=== PATIENT | male | born 1955 | race African-American/Black ===

== ENCOUNTER 2016-07-15 22:59 | Emergency (ER) | payer MEDICARE, MEDICAID ==
[~2016-07-15] VITALS: Ht 167.6 cm; Wt 102.6 kg
[~2016-07-15 22:59] MED LIST: ACCUPRIL20 MG OR; ACID REDUCER10 M1 OR; ADLT ASA LOW81 MG PO; AMBIEN10 MG PO; AMOXICILLIN/CL500 MG PO; AMOXICILLIN250 M1 PO; AMOXICILLIN500 M1 OR; ANUCORT-HC25 MG RE; ANUSOL-HC25 MG RE; ATENOLOL50 MG OR; ATENOLOL50 MG PO; ATORVASTATIN CA10 MG PO; BACTRIM DS1 TAB OR; BACTRIM DS1 TAB PO; BENZTROPINE0.5 MG PO; BENZTROPINE1 MG OR; BENZTROPINE1 MG PO; CHILD ASA LS81 MG PO; CHILD ASA81 MG PO; CIPRO500 MG OR; CIPROFLOXACN500 MG PO; COGENTIN1 M1 PO; COGENTIN1 M2 PO; COGENTIN1 MG OR; COLACE100 MG OR; COLACE100 MG PO; COLACE50 MG OR; CORRECTOL100 MG PO; CYCLOBENZAPR10 MG PO; DARVOCET-N 100100 MG OR; DEPAKOTE ER500 MG OR; DEPAKOTE ER500 MG PO; DEPAKOTE250 MG PO; DEPAKOTE500 MG OR; DEPAKOTE500 MG PO; DICYCLOMINE10 MG PO; DIGITEK0.25 MG OR; DIGOXIN0.25 MG OR; DIGOXIN0.25 MG PO; DIVALPROEX SOD250 MG PO; DIVALPROEX SOD500 M2 PO; DOCUSATE SOD100 M2 PO; DOCUSATE SOD100 MG OR; DOXYCYCL HYC100 M4 PO; ENALAPRIL10 MG OR; EYE ALLERG1 OP; FAMOTIDINE20 M1 PO; FAMOTIDINE40 MG OR; FERROUS SULF325 M2 PO; FLAGYL500 MG OR; FLEXERIL OR; FLUPHENAZINE10 MG OR; FLUPHENAZINE5 MG OR; GEODON80 MG OR; GEODON80 MG PO; HALOPERIDOL10 MG PO; HALOPERIDOL5 MG PO; HYDROCHLOROT12.5 M1 OR; HYDROCHLOROT12.5 MG PO; HYDROCODONE/ACE1 TA1 PO; KLOR-CON M2020 MEQ OR; KLOR-CON M2020 MEQ PO; LASIX 20 MG TAB20 MG PO; LASIX20 MG OR; LO-DOSE ASA81 MG OR; LORCET PLUS 7.51 TAB PO; LORTAB 5 PO; LORTAB 7.5 PO; LORTAB 7.57.5 MG PO; LOTRISONE TOP; MEDDOSEPAK OR; MIRALAX3350 N1 OR; MIRAPEX0.5 MG PO; MIRTAZAPINE15 MG PO; MULTI VIT PO; MULTIVITAMI9 PO; MURINE EAR6.5 % OT; MYCOSTATIN100000 MG EX; NAPROSYN375 MG PO; NAPROSYN500 MG OR; NAPROSYN500 MG PO; NITROQUICK0.4 MG SL; NORVASC10 M1 PO; ONDANSETRON4 MG PO; OXYCO/APAP1 TA5 PO; OXYCODONE/ACETA1 TAB PO; PENICILLN VK500 MG PO; PEPCID40 MG OR; PERCOCET 5/325M1 TAB PO; POT CHLORIDE20 ME3 PO; PRAVASTATIN40 MG OR; PRAVASTATIN40 MG PO; PRAZOSIN HCL5 MG PO; PREVACID30 M1 OR; PROLIXIN 5 MG TA5 MG OR; PROLIXIN 5 MG TA5 MG PO; PROPO-N/APAP1 TA1 OR; QUINAPRIL20 MG OR; QUINAPRIL20 MG PO; REGLAN10 MG OR; REMERON15 MG PO; REMERON7.5 MG PO; RISPERDAL M0.5 MG PO; RISPERDAL M1 MG PO; RISPERDAL1 M1 PO; RISPERDAL1 MG PO; RISPERDAL2 MG PO; RISPERIDONE2 MG PO; RYBIX ODT50 MG OR; RYBIX ODT50 MG PO; SERTRALINE HCL100 MG PO; SERTRALINE HCL50 MG PO; SURFAK240 MG OR; TENORMIN50 MG OR; TORADOL OR; TRAMADOL HCL50 MG PO; TYLENOL ARTH650 M1 PO; ULTRAM50 M1 OR; ULTRAM50 M1 PO; ULTRAM50 MG OR; ULTRAM50 MG PO; UNSURE OF MEDS; VITAMIN C500 M1 PO; WAL-FEX D 1212 HOUR PO; ZITHROMAX250 MG PO; ZOLPIDEM TARTRA10 MG PO; ZYPREXA PO; ZYPREXA ZYDI15 MG OR; ZYPREXA15 MG OR; ZYRTEC10 M2 PO; ZYRTEC10 MG PO; [UNRECOGNIZED DRUG - OTHER] EX; [UNRECOGNIZED DRUG - OTHER] IJ; [UNRECOGNIZED DRUG - OTHER] TD
[2016-07-16] MEDS ORDERED: ANUCORT-HC25 MG RE (00:11)
[2016-07-16] MEDS ORDERED: COLACE100 MG PO (00:11)
[2016-07-16 00:13] VITALS: BP 133/78
== END 2016-07-16 00:32 | disposition home or self-care (01) ==
LOC: ED 22:59
DX: K64.9 Unspecified hemorrhoids (principal)

== ENCOUNTER 2016-09-01 10:52 | Emergency (ER) | payer MEDICARE, MEDICAID ==
[~2016-09-01] VITALS: Ht 167.6 cm; Wt 100.4 kg
[2016-09-01 10:58] VITALS: BP 125/73
[2016-09-01] MEDS ORDERED: EC-NAPROSYN500 MG PO (11:17)
== END 2016-09-01 11:40 | disposition home or self-care (01) ==
LOC: ED 10:52
DX: M17.0 Bilateral primary osteoarthritis of knee (principal); R22.43 Localized swelling, mass and lump, lower limb, bilateral

== ENCOUNTER 2016-10-15 21:20 | Emergency (ER) | payer MEDICARE, MEDICAID ==
[~2016-10-15] VITALS: Ht 172.7 cm; Wt 110.0 kg
[~2016-10-15 21:20] MED LIST changes: +EC-NAPROSYN500 MG PO
[2016-10-15 22:02] LABS: HEMOGLOBIN 11.8 g/dl (14.0-18.0); IMMATURE GRANULOCYTES 0.1 % (0.0-1.0); MEAN CORPUSCULAR HGB 27.3 pG CALC (26.0-32.0); MEAN CORPUSCULAR HGB CONC 33.7 g/L CALC (32.0-36.0); NEUT# 3.07 thou/uL (1.82-7.42); RED BLOOD COUNT 4.32 mill/uL (4.70-6.10); RED CELL DISTRI WIDTH 13.9 % (11.5-15.5)
[2016-10-15 22:17] LABS: INFLUENZA A NONE DETECTED (NONE DETECT); INFLUENZA B NONE DETECTED (NONE DETECT)
[2016-10-15 22:18] LABS: ALBUMIN 4.1 g/dL (3.2-5.0); ALKALINE PHOSPHATASE 101 u/l (38-126); ANION GAP 17 (6-22 (CALC)); BILIRUBIN, TOTAL 0.3 mg/dL (0.0-1.4); BUN 13 mg/dL (8-23); BUN/CREATININE RATIO 18 (12-20 (CALC)); CALCIUM 9.4 mg/dL (8.4-10.2); CARBON DIOXIDE 22 mmol/l (22-30); CHLORIDE 105 mmol/l (95-108); CREATININE 0.7 mg/dL (0.7-1.3); GFR > 60 ML/MIN (>=60 (CALC)); GFR FOR AFR.AMER. > 60 ML/MIN (>=60 (CALC)); GLUCOSE 85 mg/dL (82-115); SGOT/AST 20 u/l (19-48); SGPT/ALT 30 u/l (11-66); SODIUM 140 mmol/l (137-146)
[2016-10-15] MEDS ORDERED: KEFLEX500 M1 PO (22:49)
[2016-10-15] MEDS ORDERED: ROBITUSSIN AC10 ML PO (22:50)
[2016-10-15 23:25] VITALS: BP 132/74
== END 2016-10-15 23:25 | disposition home or self-care (01) ==
LOC: ED 21:20
PROVIDERS: Emergency Medicine
DX: J06.9 Acute upper respiratory infection, unspecified (principal); I10 Essential (primary) hypertension; M19.90 Unspecified osteoarthritis, unspecified site; F41.9 Anxiety disorder, unspecified; F32.9 Major depressive disorder, single episode, unspecified; F17.220 Nicotine dependence, chewing tobacco, uncomplicated; Z86.73 Personal history of transient ischemic attack (TIA), and cerebral infarction without residual deficits

== ENCOUNTER 2016-10-29 06:04 | Emergency (ER) | payer MEDICARE, MEDICAID ==
[~2016-10-29] VITALS: Ht 172.7 cm; Wt 100.0 kg
[~2016-10-29 06:04] MED LIST changes: +KEFLEX500 M1 PO; +ROBITUSSIN AC10 ML PO
[2016-10-29] MEDS ORDERED: NAPROSYN500 MG PO (06:53)
[2016-10-29 07:11] VITALS: BP 118/70
== END 2016-10-29 07:14 | disposition home or self-care (01) ==
LOC: ED 06:04
DX: S83.92XA Sprain of unspecified site of left knee, initial encounter (principal); M89.9 Disorder of bone, unspecified; I10 Essential (primary) hypertension; M19.90 Unspecified osteoarthritis, unspecified site; X58.XXXA Exposure to other specified factors, initial encounter; Z86.73 Personal history of transient ischemic attack (TIA), and cerebral infarction without residual deficits

== ENCOUNTER 2017-01-25 07:19 | Emergency (ER) | payer MEDICARE, MEDICAID ==
[~2017-01-25] VITALS: Ht 172.7 cm; Wt 90.0 kg
[2017-01-25 07:56] LABS: HEMATOCRIT 36.3 % (39.0-50.0); HEMOGLOBIN 12.3 g/dl (14.0-18.0); IMMATURE GRANULOCYTES 0.3 % (0.0-1.0); MEAN CELL VOLUME 80.5 fL CALC (80.0-100.0); MEAN CORPUSCULAR HGB 27.3 pG CALC (26.0-32.0); MEAN CORPUSCULAR HGB CONC 33.9 g/L CALC (32.0-36.0); NEUT# 3.33 thou/uL (1.82-7.42); RED BLOOD COUNT 4.51 mill/uL (4.70-6.10); RED CELL DISTRI WIDTH 14.5 % (11.5-15.5)
[2017-01-25 08:06] LABS: ALBUMIN 4.1 g/dL (3.2-5.0); ALKALINE PHOSPHATASE 94 u/l (38-126); AMYLASE 67 u/l (30-110); ANION GAP 18 (6-22 (CALC)); BILIRUBIN, TOTAL 0.7 mg/dL (0.0-1.4); BUN 10 mg/dL (8-23); BUN/CREATININE RATIO 14 (12-20 (CALC)); CALCIUM 9.8 mg/dL (8.4-10.2); CARBON DIOXIDE 25 mmol/l (22-30); CHLORIDE 102 mmol/l (95-108); CREATININE 0.7 mg/dL (0.7-1.3); GFR > 60 ML/MIN (>=60 (CALC)); GFR FOR AFR.AMER. > 60 ML/MIN (>=60 (CALC)); GLUCOSE 96 mg/dL (82-115); LIPASE 103 u/l (23-300); POTASSIUM 4.2 mmol/l (3.5-5.1); SGOT/AST 24 u/l (19-48); SGPT/ALT 26 u/l (11-66); SODIUM 141 mmol/l (137-146); TOTAL PROTEIN 8.3 g/dL (6.3-8.2)
[2017-01-25 08:18] LABS: MYOGLOBIN 46 ng/mL (0 - 121)
[2017-01-25 10:12] LABS: URINE BILIRUBIN - DIPSTICK NEGATIVE (NEGATIVE); URINE BLOOD DIPSTICK TRACE-INTACT (NEGATIVE); URINE CLARITY CLEAR; URINE COLOR YELLOW; URINE GLUCOSE - DIPSTICK NEGATIVE (NEGATIVE); URINE KETONE NEGATIVE (NEGATIVE); URINE LEUK ESTERASE NEGATIVE (NEGATIVE); URINE NITRITE - DIPSTICK NEGATIVE (Negative); URINE PROTEIN - DIPSTICK NEGATIVE (NEG-TRACE)
[2017-01-25] MEDS ORDERED: IMODIUM2 MG PO (11:17)
[2017-01-25 11:28] VITALS: BP 147/70
[2017-01-29] MEDS ORDERED: NAPROXEN500 MG PO (14:29)
[2017-01-29] MEDS ORDERED: FAMOTIDINE20 M3 PO (14:53)
[2017-01-29] MEDS ORDERED: TENORMIN PO (14:53)
[2017-01-29] MEDS ORDERED: HYDROCO/APAP1 TA9 PO (14:54)
== END 2017-01-25 11:35 | disposition home or self-care (01) ==
LOC: ED 07:19
PROVIDERS: Emergency Medicine
DX: R10.9 Unspecified abdominal pain (principal); R07.9 Chest pain, unspecified; R19.7 Diarrhea, unspecified

== ENCOUNTER 2017-01-30 11:13 | Day surgery (SDC) | payer MEDICARE, MEDICAID ==
[~2017-01-30] VITALS: Ht 170.2 cm; Wt 102.5 kg
[~2017-01-30 11:13] MED LIST changes: +FAMOTIDINE20 M3 PO; +HYDROCO/APAP1 TA9 PO; +IMODIUM2 MG PO; +NAPROXEN500 MG PO; +TENORMIN PO
[2017-01-30 13:47] VITALS: BP 106/58
== END 2017-01-30 11:41 | disposition home or self-care (01) ==
LOC: ENDO 11:13 → ORM 11:45 → ENDO 14:00 → ORM 14:30
PROVIDERS: ATTEND Surgery
PROC: 0D5Q8ZZ Destruction of Anus, Via Natural or Artificial Opening Endoscopic (ICD-10-PCS; principal; 2017-01-30)
DX: K64.4 Residual hemorrhoidal skin tags (principal); K64.8 Other hemorrhoids; I10 Essential (primary) hypertension; I25.10 Atherosclerotic heart disease of native coronary artery without angina pectoris; G47.00 Insomnia, unspecified; F20.9 Schizophrenia, unspecified; G62.9 Polyneuropathy, unspecified; Z86.73 Personal history of transient ischemic attack (TIA), and cerebral infarction without residual deficits

== ENCOUNTER 2017-03-16 20:21 | Emergency (ER) | payer MEDICARE, MEDICAID ==
[~2017-03-16] VITALS: Ht 170.2 cm; Wt 106.0 kg
[2017-03-16 22:45] VITALS: BP 126/76
== END 2017-03-16 22:45 | disposition home or self-care (01) ==
LOC: ED 20:21
DX: M75.21 Bicipital tendinitis, right shoulder (principal); M25.511 Pain in right shoulder; V19.9XXA Pedal cyclist (driver) (passenger) injured in unspecified traffic accident, initial encounter; Y93.55 Activity, bike riding; Y92.9 Unspecified place or not applicable; R94.31 Abnormal electrocardiogram [ECG] [EKG]

== ENCOUNTER 2017-05-04 11:24 | Emergency (ER) | payer MEDICARE, MEDICAID ==
[~2017-05-04] VITALS: Ht 170.2 cm; Wt 140.0 kg
[2017-05-04 13:02] LABS: HEMATOCRIT 36.8 % (39.0-50.0); HEMOGLOBIN 12.3 g/dl (14.0-18.0); IMMATURE GRANULOCYTES 0.2 % (0.0-1.0); MEAN CELL VOLUME 81.8 fL CALC (80.0-100.0); MEAN CORPUSCULAR HGB 27.3 pG CALC (26.0-32.0); MEAN CORPUSCULAR HGB CONC 33.4 g/L CALC (32.0-36.0); NEUT# 4.7 thou/uL (1.82-7.42); RED BLOOD COUNT 4.5 mill/uL (4.70-6.10); RED CELL DISTRI WIDTH 14.3 % (11.5-15.5)
[2017-05-04 13:23] LABS: ANION GAP 19 (6-22 (CALC)); BUN 12 mg/dL (8-23); BUN/CREATININE RATIO 15 (12-20 (CALC)); CALCIUM 10.3 mg/dL (8.4-10.2); CARBON DIOXIDE 21 mmol/l (22-30); CHLORIDE 104 mmol/l (95-108); CREATININE 0.8 mg/dL (0.7-1.3); GFR > 60 ML/MIN (>=60 (CALC)); GFR FOR AFR.AMER. > 60 ML/MIN (>=60 (CALC)); GLUCOSE 114 mg/dL (82-115); POTASSIUM 4.5 mmol/l (3.5-5.1); SODIUM 140 mmol/l (137-146)
[2017-05-04 14:36] VITALS: BP 118/71
== END 2017-05-04 14:44 | disposition home or self-care (01) ==
LOC: ED 11:24
PROVIDERS: Family Medicine
DX: K64.9 Unspecified hemorrhoids (principal); F17.220 Nicotine dependence, chewing tobacco, uncomplicated; M25.512 Pain in left shoulder

== ENCOUNTER 2017-08-14 12:24 | Emergency (ER) | payer MEDICARE, MEDICAID ==
[~2017-08-14] VITALS: Ht 170.2 cm; Wt 104.4 kg
[~2017-08-14 12:24] MED LIST changes: +BENTYL10 MG PO
[2017-08-14] MEDS ORDERED: VOLTAREN - GENE75 MG PO (13:56)
[2017-08-14 14:05] VITALS: BP 129/79
== END 2017-08-14 14:05 | disposition home or self-care (01) ==
LOC: ED 12:24
DX: S46.911A Strain of unspecified muscle, fascia and tendon at shoulder and upper arm level, right arm, initial encounter (principal); W18.30XA Fall on same level, unspecified, initial encounter; Y93.E5 Activity, floor mopping and cleaning; Y92.009 Unspecified place in unspecified non-institutional (private) residence as the place of occurrence of the external cause; F17.220 Nicotine dependence, chewing tobacco, uncomplicated

== ENCOUNTER 2017-10-24 15:21 | Observation (INO) | payer MEDICARE, MEDICAID ==
[~2017-10-24] VITALS: Ht 170.2 cm; Wt 106.1 kg
[~2017-10-24 15:21] MED LIST changes: +VOLTAREN - GENE75 MG PO
--- NOTE | 2017-10-24 15:22 | NUR ---
TO ROOM 12 VIA W/C
[2017-10-24] MEDS ORDERED: ASPIRIN81 MG PO (15:34)
[2017-10-24] MEDS ORDERED: PRAVASTATIN20 MG PO (15:34)
[2017-10-24] MEDS ORDERED: PRAMIPEXOLE0.25 MG PO (15:36)
[2017-10-24] MEDS ORDERED: ZOLPIDEM5 M1 PO (15:36)
[2017-10-24] MEDS ORDERED: PEPCID20 MG PO (15:37)
[2017-10-24] MEDS ORDERED: DIGOXIN0.125 MG PO (15:37)
[2017-10-24] MEDS ORDERED: TENORMIN50 MG PO (15:38)
[2017-10-24] MEDS ORDERED: MINIPRESS5 MG PO (15:38)
[2017-10-24] MEDS ORDERED: QUINAPRIL HCL20 MG PO (15:39)
[2017-10-24] MEDS ORDERED: K-DUR/KLOR-CON20 MEQ PO (15:39)
[2017-10-24] MEDS ORDERED: DOCUSATE SOD100 M2 PO (15:40)
[2017-10-24] MEDS ORDERED: HYDROCHLOROT25 MG PO (15:41)
[2017-10-24] MEDS ORDERED: BENZTROPINE0.5 MG PO (15:43)
[2017-10-24] MEDS ORDERED: SERTRALINE HCL50 MG PO (15:43)
[2017-10-24] MEDS ORDERED: HALOPERIDOL5 MG PO (15:43)
[2017-10-24] MEDS ORDERED: DIVALPROEX SOD250 MG PO (15:44)
[2017-10-24] MEDS ORDERED: RISPERIDONE2 MG PO (15:44)
[2017-10-24] MEDS ORDERED: RISPERIDONE0.5 MG PO (15:45)
[2017-10-24 15:51] LABS: HEMATOCRIT 36.3 % (39.0-50.0); HEMOGLOBIN 12.2 g/dl (14.0-18.0); IMMATURE GRANULOCYTES 0.4 % (0.0-1.0); MEAN CELL VOLUME 80.5 fL CALC (80.0-100.0); MEAN CORPUSCULAR HGB 27.1 pG CALC (26.0-32.0); MEAN CORPUSCULAR HGB CONC 33.6 g/L CALC (32.0-36.0); NEUT# 3.78 thou/uL (1.82-7.42); RED BLOOD COUNT 4.51 mill/uL (4.70-6.10); RED CELL DISTRI WIDTH 14.3 % (11.5-15.5)
[2017-10-24 16:07] LABS: ANION GAP 14 (6-22 (CALC)); BUN 19 mg/dL (8-23); BUN/CREATININE RATIO 23 (12-20 (CALC)); CARBON DIOXIDE 26 mmol/l (22-30); CHLORIDE 102 mmol/l (95-108); CREATININE 0.8 mg/dL (0.7-1.3); GFR > 60 ML/MIN (>=60 (CALC)); GFR FOR AFR.AMER. > 60 ML/MIN (>=60 (CALC)); SODIUM 138 mmol/l (137-146)
--- NOTE | 2017-10-24 16:07 | NUR ---
PT NOW WITH IV ESTABLISHED, BLOOD DRAWN, PROVIDED NTG SL AND ASA. NO IMPROVEMENT AFTER ONE NTG SL.
--- NOTE | 2017-10-24 17:56 | NUR ---
REPORT TO JUSTIN, TO FLOOR SOON. REPORT CALLED.
[2017-10-24 18:03] VITALS: BP 123/74
--- NOTE | 2017-10-24 18:09 | NUR ---
PT TAKEN TO ROOM 284 WITHOUT INCIDENT, AMBULATORY FROM STRETCHER TO BED.
--- NOTE | 2017-10-24 18:41 | NUR ---
REPORT RECEIVED FROM SACHIN IN ED, PT ARRIVED ON UNIT @ 1806, ALERT AND ORIENTED X 3, C/O PAIN TO RIGHT CHEST AGGRAVATED BY MOVING RIGHT ARM, ORIENTED TO ROOM AND CALL TREJO, TELE MONITOR IN PLACE, O2 @ 2L VIA NC IN PLACE, CALL TREJO IN REACH.
--- NOTE | 2017-10-24 19:25 | NUR ---
PT.IS IN THE BED W/LIGHTS AND TV ON, CALL LIGHT AT BEDSIDE, APPEARS TO BE COMFORTABLE AND RESTFUL. BEDSIDE REPORT RECEIVED. PT.REPORTS FEELING "A LITTLE BETTER" THAN WHEN HE FIRST GOT HERE. DENIES ANY NEEDS RIGHT AT THIS MOMENT. CALL LIGHT AT SIDE.
--- NOTE | 2017-10-24 20:30 | NUR ---
PT.MEDICATED ORDERS PROVIDE AND ASSESSMENT COMPLETED. LUNG SOUNDS ARE CLEAR, NORMAL HEART SOUNDS AUSCULTATED, 300CC OF CLEAR YELLOW URINE IN URINAL EMPTIED, PT.LOCX3, BUT COMMUNICATES SLOWLY, REPORTS HAVING HAD BM TODAY. PT.REPORTS LIVING WITH HIS BROTHERS, STATES THAT HE DOES NOT DRIVE, DENIES ANY FIGHTING/ABUSE AND REPORTS FEELING SAFE, BUT THAT HE IS "ALONE ALOT." PT.REPORTS HAVING HAD VACCINES FLU AND PNEUMONIA. HE APPEARS TO UNDERSTAND AND BE ABLE TO FOLLOW DIRECTIONS IF GIVEN AND EXPLAINED SLOWLY. PT.DENIES PAIN AT THIS TIME, STATES TAHT HE IS "FEELING BETTER." REPORTS THAT HIS RIGHT SHOULDER HURTS SOME WHEN HE RAISES. PT.HAS BEEN REMINDED OF CALL LIGHT AND ENCOURAGED TO CALL IF HE NEEDS ANY ASSISTANCE OR TO AMBULATE. PT.ASSISTED TO RESTROOM AND BACK TO BED PRIOR TO LEAVING ROOM.
[2017-10-25 00:11] VITALS: BP 145/91
--- NOTE | 2017-10-25 00:30 | NUR ---
PT.MEDICATED ORDERS PROVIDE W/ANTIBIOTIC IV THERAPY. PT.WAS SLEEPING UPON ENTERING ROOM. NO S/S OF DISTRESS, DENIES ANY NEEDS AT THIS TIME. LIGHTS OUT TV ON.
--- NOTE | 2017-10-25 02:45 | NUR ---
PT.APPEARS TO BE SLEEPING AT THIS TIME, NO S/S OF DISTRESS NOTED. CALL LIGHT AT BEDSIDE.
[2017-10-25 04:27] VITALS: BP 124/81
[2017-10-25 06:12] LABS: HEMOGLOBIN 12.4 g/dl (14.0-18.0); IMMATURE GRANULOCYTES 0.3 % (0.0-1.0); MEAN CELL VOLUME 80.4 fL CALC (80.0-100.0); MEAN CORPUSCULAR HGB CONC 33.5 g/L CALC (32.0-36.0); NEUT# 2.64 thou/uL (1.82-7.42); RED BLOOD COUNT 4.6 mill/uL (4.70-6.10); RED CELL DISTRI WIDTH 14.2 % (11.5-15.5)
--- NOTE | 2017-10-25 06:24 | NUR ---
PT.ASSISTED TO RESTROOM. REPORTS PAIN IN RIGHT SHOULDER.
[2017-10-25 06:29] LABS: ALBUMIN 3.8 g/dL (3.2-5.0); ALKALINE PHOSPHATASE 98 u/l (38-126); ANION GAP 15 (6-22 (CALC)); BILIRUBIN, TOTAL 0.4 mg/dL (0.0-1.4); BUN 16 mg/dL (8-23); BUN/CREATININE RATIO 23 (12-20 (CALC)); CALCULATED LDLCHOLESTEROL 99 mg/dL (62-129 (CALC)); CARBON DIOXIDE 25 mmol/l (22-30); CHLORIDE 103 mmol/l (95-108); CREATININE 0.7 mg/dL (0.7-1.3); GFR > 60 ML/MIN (>=60 (CALC)); GFR FOR AFR.AMER. > 60 ML/MIN (>=60 (CALC)); HDL CHOLESTEROL 61 mg/dL (>=40); POTASSIUM 4.4 mmol/l (3.5-5.1); SGOT/AST 18 u/l (19-48); SGPT/ALT 27 u/l (11-66); SODIUM 138 mmol/l (137-146); TOTAL CHOLESTEROL 184 mg/dl (0-199); TOTAL TRIGLYCERIDES 120 mg/dl (30-149); VLDL CHOLESTROL 24 mg/dl (4-45 (CALC))
--- NOTE | 2017-10-25 07:24 | NUR ---
SHIFT CHANGE REPORT FROM HO PT IN BR DOING AM CARE, NO COMPLAINS AT THIS TIME, TELE MONITOR IN PLACE, CALL TREJO IN REACH.
[2017-10-25 08:03] VITALS: BP 120/62
[2017-10-25 12:00] VITALS: BP 128/81
[2017-10-25 15:09] VITALS: BP 122/79
--- NOTE | 2017-10-25 17:44 | NUR ---
Discharged to: Home Discharged via: Wheelchair Accompanied by: family D/C Condition: stable Diet: 2 gm sodium Diet modification: low sodium Activity: As desired Home Health: NONE Follow up appointment: Special instructions: Medications: SEE MEDICATION RECONCILIATION FORM Prescriptions Given: Please notify your physician if you received either one of these vaccinations: Influenza Vaccine - Date: Pneumococcal Vaccine - Date: Patient Education Materials Provided: No - Food and Drug Interaction Guide - Anticoagulation Education Booklet Contains the following information: 1. Compliance issues 2. Dietary advice 3. Follow up monitoring 4. Potential for adverse drug reactions and interactions No - Smoking Cessation Booklet IF SYMPTOMS WORSEN, OR IF YOU HAVE ADDITIONAL QUESTIONS, PLEASE CONTACT YOUR PERSONAL PHYSICIAN OR SEEK EMERGENCY CARE. CALL YOUR PHYSICIAN IF YOU DO NOT GET RELIEF FROM THE PAIN MEDICATIONS PRESCRIBED, OR IF THE INTENSITY OF PAIN INCREASES, OR IF PAIN IS INTERFERING WITH ACTIVITY OR REST. IF YOU SMOKE, YOU NEED TO QUIT. IT IS GOOD FOR YOU AND EVERYONE AROUND YOU! Your physician and [facility] care about you and your health. The facts are clear. Smoking causes 1 out of 5 deaths in the [place] each year. It is the major preventable cause of emphysema, lung cancer, chronic bronchitis, heart disease and stroke. Quitting is one of the best things you can ever do for yourself and those you love. What better time to quit than now! You've already been cigarette free during your stay. Studies have shown that the first 48 hours of quitting are the toughest. Just a few of the benefits your body begins to experience are blood pressure returns to normal, the carbon monoxide level in your blood drops to normal, your chance of heart attack decreases, and your ability to smell and taste is enhanced. Here are some resources that you may find helpful: [place] [employer] [place] [employer] www.lungusa.org www.cancer.org [place] [employer] [place] Department of Health (Tobacco Prevention and Control Program) www.americanheart.org www.will.[facility].fl.us Finally don't forget that your doctor may be able to help you. Whichever method you choose will be good for you. IF YOU HAVE A DIAGNOSIS OF CONGESTIVE HEART FAILURE, THERE ARE SEVERAL ADDITIONAL INSTRUCTIONS FOR YOU TO FOLLOW UPON DISCHARGE FROM THE HOSPITAL. Weigh yourself every day and if weight gain is greater than 2 pounds in a day, call your physican. If you experience worsening symptoms such as: Problems with breathing or shortness of breath Ankle/foot/leg swelling Unexplained weight gain greater than 2 pounds Call your physician or come to the emergency room. IF YOU HAVE A DIAGNOSIS OF STROKE, THERE ARE SEVERAL ADDITIONAL INSTRUCTIONS FOR YOU TO FOLLOW: A stroke occurs when something happens to interrupt the steady flow of blood to the brain, like a clot or a burst in a blood vessel. Brain cells quickly begin to . These INCREASE your chance of having a STROKE: * Smoking * High blood pressure * Diabetes * Obesity WARNING SIGNS OR SYMPTOMS: * Sudden weakness on one side of body. * Sudden confusion, trouble speaking or understanding. * Sudden trouble seeing. * Sudden trouble walking or loss of balance. * Sudden severe headache with no known cause. CALL At Any Sign of Stroke. You can beat a stroke. Disabilities can be prevented or limited, but you have must go to the Emergency Department immediately. Go in an Ambulance. Save Time. Be Seen Faster! If you were admitted to the hospital for a stroke After DISCHARGE you must: * Keep ALL follow up appointments. * Take your medications as ordered by your doctor. * Do not take any other drugs without checking with your doctor first. * Do not drive unless your doctor says it is okay. * Call your doctor with any questions or concerns. IF YOU WERE DISCHARGED ON COUMADIN/WARFARIN ANTICOAGULATION THERAPY, THERE ARE SEVERAL ADDITIONAL INSTRUCTIONS FOR YOU TO FOLLOW: Anticoagulants are medications that help prevent blood clots. They are often prescribed for people with certain heart, lung and blood vessel diseases to help prevent heart attacks and strokes. IMPORTANT Anticoagulation medications have been used for many years, but it can be difficult to manage. That's because many factors can affect how they work-including small changes in dose or dose timing, what you eat or drink, other medications and stress. You and your doctor must work closely together to manage this important medication. * Take your medicine EXACTLY as instructed by your doctor. * You must have your blood drawn for PT/INR to monitor your medication. * Do not take any new medications, vitamins or herbal supplements without asking your doctor first. FOODS: * Eat the same amount of foods that contain Vitamin K every day. * Avoid or limit alcohol. * Avoid major changes in diet or notify your doctor first. FOLLOW UP MONITORING: See your physician within one week to monitor your condition. You will need to have blood tests performed to monitor the medication. DRUG INTERACTIONS: * Diet and medications can affect the PT/INR level. * Do not take or discontinue any medication or over the counter medication unless your doctor okays. * Warfarin/Coumadin increases the risk of bleeding. CALL YOUR PHYSICIAN IF: If you notice any signs of increased bleedin. Excessive bruising. 2. Abnormal bleeding from nose or gums. 3. [place], red or dark brown urine. 4. Minor bleeding or bright red blood from the bowel. CALL 911 OR GO TO THE HOSPITAL IF: 1. You have black tarry stools. 2. Sudden dizziness, faintness or weakness. 3. Cold or numbness in arm or leg. 4. Sudden chest pain. 5. Trouble talking or moving one side of body. 6. Coughing or vomiting bright red blood. 7. Severe headache or stomach pain. 8. Serious fall or hit to the head. Visit our website at [email or web address] You are going home today. Depending on your insurance coverage, you may be receiving a bill from the hospital for your hospital stay. If you have any question about your bill, please call the Business Office at [phone] or contact us at our web address: [email or web address]. If applicable, I have received my medication information as recommeded by my provider upon discharge. I have read and understand the above discharge instructions. Pt Signature: Date: Time: Witnessed by: Date: Time: Complete the record of communication to the next provider below. These discharge instructions, including discharge medications, is to be faxed to the next provider at the time of the patient's discharge. ____These instructions faxed to next Provider (Provider Name) on (Date) @ (Time) . ____The second provider involved in patient care following discharge has been faxed this information. These instructions faxed to (Provider-Home Health, Physical Therapy, Agency) on (Date) @ (Time) . OR ____Patient unable/unwilling to verbalize who the next provider of care will be, instructed patient to take these instructions to next appointment with healthcare provider.
--- NOTE | 2017-10-25 18:32 | NUR ---
Discharge instructions given. Patient verbalizes understanding of same. Discharged in stable condition via Wheelchair to Home with family. All belongings sent with pt.
== END 2017-10-25 18:32 | disposition home or self-care (01) ==
LOC: ED 15:21 → ED-I 16:16 → ED 16:27 → MS2 16:28
PROVIDERS: Family Medicine; ADMIT Internal Medicine Geriatric Medicine; ATTEND Internal Medicine Geriatric Medicine
DX: R07.9 Chest pain, unspecified (principal); R94.31 Abnormal electrocardiogram [ECG] [EKG]; I10 Essential (primary) hypertension; K27.9 Peptic ulcer, site unspecified, unspecified as acute or chronic, without hemorrhage or perforation; K21.9 Gastro-esophageal reflux disease without esophagitis; F41.1 Generalized anxiety disorder; M19.90 Unspecified osteoarthritis, unspecified site; J44.9 Chronic obstructive pulmonary disease, unspecified; F20.5 Residual schizophrenia; F17.200 Nicotine dependence, unspecified, uncomplicated

== ENCOUNTER 2018-01-17 10:31 | Day surgery (SDC) | payer MEDICARE, MEDICAID ==
[~2018-01-17] VITALS: Ht 172.7 cm; Wt 101.6 kg
[~2018-01-17 10:31] MED LIST changes: +ASPIRIN81 MG PO; +DIGOXIN0.125 MG PO; +HYDROCHLOROT25 MG PO; +K-DUR/KLOR-CON20 MEQ PO; +MINIPRESS5 MG PO; +MOBIC7.5 M1 PO; +PEPCID20 MG PO; +PRAMIPEXOLE0.25 MG PO; +PRAVASTATIN20 MG PO; +QUINAPRIL HCL20 MG PO; +RISPERIDONE0.5 MG PO; +TENORMIN50 MG PO; +ZOLPIDEM5 M1 PO
[2018-01-17 14:43] VITALS: BP 111/54
== END 2018-01-17 15:05 | disposition home or self-care (01) ==
LOC: ENDO 10:31 → ORM 14:00 → ENDO 14:00
PROVIDERS: ATTEND Internal Medicine Gastroenterology
PROC: 0DBN8ZX Excision of Sigmoid Colon, Via Natural or Artificial Opening Endoscopic, Diagnostic (ICD-10-PCS; principal; 2018-01-17)
PROC: 0DB48ZX Excision of Esophagogastric Junction, Via Natural or Artificial Opening Endoscopic, Diagnostic (ICD-10-PCS; 2018-01-17)
PROC: 0D758ZZ Dilation of Esophagus, Via Natural or Artificial Opening Endoscopic (ICD-10-PCS; 2018-01-17)
DX: K57.31 Diverticulosis of large intestine without perforation or abscess with bleeding (principal); K29.71 Gastritis, unspecified, with bleeding; K44.9 Diaphragmatic hernia without obstruction or gangrene; K62.89 Other specified diseases of anus and rectum; K21.9 Gastro-esophageal reflux disease without esophagitis; K64.8 Other hemorrhoids; K64.4 Residual hemorrhoidal skin tags; D12.7 Benign neoplasm of rectosigmoid junction; D12.5 Benign neoplasm of sigmoid colon; I10 Essential (primary) hypertension
CPT/HCPCS: J0461

== ENCOUNTER 2018-02-03 10:53 | Observation (INO) | payer MEDICARE, MEDICAID ==
[~2018-02-03] VITALS: Ht 172.7 cm; Wt 105.0 kg
--- NOTE | 2018-02-03 10:54 | NUR ---
Pt ambulated to room # 8 with cane assist. Refused w/c. Pt placed on cardiac, SAO2, and BP monitors.
[2018-02-03 11:19] LABS: HEMATOCRIT 34.6 % (39.0-50.0); HEMOGLOBIN 11.6 g/dl (14.0-18.0); IMMATURE GRANULOCYTES 0.2 % (0.0-5.0); MEAN CELL VOLUME 80.3 fL CALC (80.0-100.0); MEAN CORPUSCULAR HGB 26.9 pG CALC (26.0-32.0); MEAN CORPUSCULAR HGB CONC 33.5 g/L CALC (32.0-36.0); RED BLOOD COUNT 4.31 mill/uL (4.70-6.10); RED CELL DISTRI WIDTH 13.9 % (11.5-15.5)
[2018-02-03 11:44] LABS: ALBUMIN 4.1 g/dL (3.2-5.0); ALKALINE PHOSPHATASE 105 u/l (38-126); ANION GAP 16 (6-22 (CALC)); BILIRUBIN, TOTAL 0.2 mg/dL (0.0-1.4); BUN 12 mg/dL (8-23); BUN/CREATININE RATIO 14 (12-20 (CALC)); CARBON DIOXIDE 21 mmol/l (22-30); CHLORIDE 105 mmol/l (95-108); CREATININE 0.9 mg/dL (0.7-1.3); GFR > 60 ML/MIN (>=60 (CALC)); GFR FOR AFR.AMER. > 60 ML/MIN (>=60 (CALC)); POTASSIUM 4.2 mmol/l (3.5-5.1); SGOT/AST 23 u/l (19-48); SODIUM 138 mmol/l (137-146); TOTAL PROTEIN 8.6 g/dL (6.3-8.2)
--- NOTE | 2018-02-03 12:25 | NUR ---
OOB TO BATHROOM WITH STEADY GAIT. PT SMILING AND TALKING. NO ACUTE DISTRESS NORED. PT VOIDED SMALL AMOUNT OF CLEAR URINE AND HAD ONE SMALL FORMED BROWN STOOL.
[2018-02-03] MEDS ORDERED: OMEPRAZOLE10 MG PO (12:30)
[2018-02-03] MEDS ORDERED: CHOLESTYRAMI PO (12:34)
[2018-02-03 12:59] LABS: URINE BILIRUBIN - DIPSTICK NEGATIVE (NEGATIVE); URINE BLOOD DIPSTICK SMALL (NEGATIVE); URINE COLOR YELLOW; URINE GLUCOSE - DIPSTICK NEGATIVE (NEGATIVE); URINE KETONE NEGATIVE (NEGATIVE); URINE LEUK ESTERASE TRACE (NEGATIVE); URINE NITRITE - DIPSTICK NEGATIVE (Negative); URINE PROTEIN - DIPSTICK NEGATIVE (NEG-TRACE); URINE SPECIFIC GRAVITY <=1.005; URINE UROBILINOGEN - DIPSTICK 0.2 E.U./dL (0.2)
[2018-02-03 13:02] LABS: URINE CLARITY SL CLOUDY
[2018-02-03 13:03] LABS: URINE RBC 0-2 RBC/hpf (0-5); URINE WBC 0-2 WBC/hpf (0-5)
--- NOTE | 2018-02-03 13:16 | NUR ---
ATTEMPTED TO CALL REPORT, JUSTIN PANG WILL CALL BACK MOMENTARILY FOR REPORT.
--- NOTE | 2018-02-03 13:17 | NUR ---
PT RESTING WITH EYES CLOSED, AWAKENS EASILY. NO CHANGE IN PT STATUS.
--- NOTE | 2018-02-03 14:00 | NUR ---
ATTEMPTED TO CALL REPORT, JUSTIN WILL CALL BACK.
--- NOTE | 2018-02-03 14:15 | NUR ---
REPORT TO JUSTIN PANG.
--- NOTE | 2018-02-03 14:34 | NUR ---
PT TAKEN TO MED SURG VIA WC IN STABLE CONDITION.
--- NOTE | 2018-02-03 14:44 | NUR ---
REPORT RECEIVED FROM EVELYN IN ED, PT ARRIVED ON UNIT VIA W/C @ 1440, ALERT AND ORIENTED X3, DENIED PAIN BUT C/O STABBING PAIN TO LEGS, ORIENTED TO ROOM AND CALL TREJO, TELE MONITOR IN PLACE. REQUESTING TO HAVE FOOD STATING HE WAS HUNGRY AND CONTINUED TO ASK FOR MEAL WHEN TOLD TIME OF NEXT MEAL, GIVEN SNACK AND WAS SATISFIED UNTIL IT WAS TIME FOR MEAL TO BE SERVED, WILL CONTINUE TO MONITOR.
[2018-02-03 14:46] VITALS: BP 125/77
--- NOTE | 2018-02-03 19:28 | NUR ---
PATIENT RESTING IN WATCHING TV AT THIS TIME. TELE MONITOR IN PLACE. IVF D51/2NS PATENT AND INFUSING RIGHT HAND SITE. SITE APPEARS HEALTHY AT THIS TIME. SAFETY PRECAUTIONS REINFORCED.CALL LIGHT IN REACH. WILL CONT TO MONITOR,
[2018-02-03 19:41] VITALS: BP 140/90
--- NOTE | 2018-02-03 19:42 | NUR ---
PATIENT UP TO THE BR FOR BM AND ASSISTED BACK TO THE BED. CALL LIGHT IN REACH. WILL CONT TO MONITOR.
--- NOTE | 2018-02-03 22:00 | NUR ---
PATIENT RESTING IN BED-STATES THAT WHEN HE HAD A BM EARLIER HE NOTICED SOME BLOOD BUT FLUSHED. INSTRUCTED PATIENT TO LET STAFF KNOW THE NEXT TIME THIS HAPPENS SO THAT THE STAFF CAN EVALUATE THE BM. VERBALIZES UNDERSTANDING. PATIENT PROVIDED WITH SANDWICH AND JUICE PER PATIENT REQUEST. VOIDING QS CLEAR YELLOW URINE IN THE URINAL. SAFETY PRECAUTIONS REINFORCED. CALL LIGHT IN REACH. WILL CONT TO MONITOR.
[2018-02-03 23:49] VITALS: BP 133/86
--- NOTE | 2018-02-04 02:38 | NUR ---
PATIENT APPEARS SLEEPING POSITIONED ON HIS LEFT SIDE WITH EYES CLOSED. IVF PATENT AND INFUSING VIA RIGHT HAND SITE AT 75CC/HR. CALL LIGHT IN REACH. WILL CONT TO MONITOR.
[2018-02-04 03:51] VITALS: BP 169/91
[2018-02-04 05:26] LABS: HEMATOCRIT 38.6 % (39.0-50.0); HEMOGLOBIN 12.9 g/dl (14.0-18.0); IMMATURE GRANULOCYTES 0.3 % (0.0-5.0); MEAN CELL VOLUME 81.1 fL CALC (80.0-100.0); MEAN CORPUSCULAR HGB 27.1 pG CALC (26.0-32.0); MEAN CORPUSCULAR HGB CONC 33.4 g/L CALC (32.0-36.0); NEUT# 3.22 thou/uL (1.82-7.42); RED BLOOD COUNT 4.76 mill/uL (4.70-6.10); RED CELL DISTRI WIDTH 13.8 % (11.5-15.5)
[2018-02-04 05:35] LABS: ALBUMIN 3.7 g/dL (3.2-5.0); ALKALINE PHOSPHATASE 89 u/l (38-126); ANION GAP 17 (6-22 (CALC)); BILIRUBIN, TOTAL 0.4 mg/dL (0.0-1.4); BUN 12 mg/dL (8-23); BUN/CREATININE RATIO 19 (12-20 (CALC)); CALCULATED LDLCHOLESTEROL 72 mg/dL (62-129 (CALC)); CARBON DIOXIDE 22 mmol/l (22-30); CHLORIDE 103 mmol/l (95-108); CHOLESTEROL HDL RATIO 2.8 (<4.4 (CALC)); CREATININE 0.7 mg/dL (0.7-1.3); GFR > 60 ML/MIN (>=60 (CALC)); GFR FOR AFR.AMER. > 60 ML/MIN (>=60 (CALC)); HDL CHOLESTEROL 54 mg/dL (>=40); POTASSIUM 4.3 mmol/l (3.5-5.1); SGOT/AST 21 u/l (19-48); SODIUM 137 mmol/l (137-146); TOTAL CHOLESTEROL 152 mg/dl (0-199); TOTAL PROTEIN 7.6 g/dL (6.3-8.2); TOTAL TRIGLYCERIDES 130 mg/dl (30-149); VLDL CHOLESTROL 26 mg/dl (4-45 (CALC))
--- NOTE | 2018-02-04 07:00 | NUR ---
SHIFT CHANGE REPORT FROM CINDY SEGURA AWAKE ALERT AND ORIENTED, C/O PAIN TO LEGS, ISSUE ADDRESSED, IVF INFUSING, TELE MONITOR IN PLACE, CALL TREJO IN REACH.
[2018-02-04 08:06] VITALS: BP 140/90
[2018-02-04 08:38] VITALS: BP 140/90
--- NOTE | 2018-02-04 10:31 | NUR ---
Discharge instructions given. Patient verbalizes understanding of same. Discharged in good condition via Wheelchair to Home with family. All belongings sent with pt.
== END 2018-02-04 10:40 | disposition home or self-care (01) ==
LOC: ED 10:53 → ED-I 11:20 → ED 11:20 → ED-I 11:57 → ED 11:59 → MS2 12:10
PROVIDERS: Family Medicine; ADMIT Internal Medicine Geriatric Medicine; ATTEND Internal Medicine Geriatric Medicine
DX: R07.9 Chest pain, unspecified (principal); R94.31 Abnormal electrocardiogram [ECG] [EKG]; I10 Essential (primary) hypertension; J44.9 Chronic obstructive pulmonary disease, unspecified; F79 Unspecified intellectual disabilities; M19.90 Unspecified osteoarthritis, unspecified site; K27.9 Peptic ulcer, site unspecified, unspecified as acute or chronic, without hemorrhage or perforation; K21.9 Gastro-esophageal reflux disease without esophagitis; G40.909 Epilepsy, unspecified, not intractable, without status epilepticus; F17.220 Nicotine dependence, chewing tobacco, uncomplicated; F20.5 Residual schizophrenia; G25.81 Restless legs syndrome; N62 Hypertrophy of breast

== ENCOUNTER 2018-04-02 01:41 | Emergency (ER) | payer MEDICARE, MEDICAID ==
[~2018-04-02] VITALS: Ht 172.7 cm; Wt 106.0 kg
[~2018-04-02 01:41] MED LIST changes: +CHOLESTYRAMI PO; +OMEPRAZOLE10 MG PO
[2018-04-02] MEDS ORDERED: BENADRY2 EX (02:02)
[2018-04-02] MEDS ORDERED: BENADRYL 50MG C50 MG PO (02:02)
[2018-04-02 02:18] VITALS: BP 137/69
== END 2018-04-02 02:24 | disposition home or self-care (01) ==
LOC: ED 01:41
DX: S20.461A Insect bite (nonvenomous) of right back wall of thorax, initial encounter (principal); I10 Essential (primary) hypertension; W57.XXXA Bitten or stung by nonvenomous insect and other nonvenomous arthropods, initial encounter

== ENCOUNTER → 2018-06-24 | Outpatient (REF) | payer MEDICARE, MEDICAID ==
[~2018-06-24] MED LIST changes: +BENADRY2 EX; +BENADRYL 50MG C50 MG PO; +DIGOXIN250 MCG PO; +PRAVACHOL40 MG PO; +VALPROIC ACD250 M3 PO
[2018-06-24 09:40] LABS: CHOLESTEROL HDL RATIO 3.5 (<4.4 (CALC))
== END | disposition home or self-care (01) ==
LOC: LAB 08:40
PROVIDERS: Internal Medicine Geriatric Medicine; ATTEND Nurse Practitioner Family
DX: G40.909 Epilepsy, unspecified, not intractable, without status epilepticus (principal); E78.5 Hyperlipidemia, unspecified

== ENCOUNTER 2018-07-31 07:24 | Day surgery (SDC) | payer MEDICARE, MEDICAID ==
[~2018-07-31] VITALS: Ht 172.7 cm; Wt 100.7 kg
[2018-07-31] MEDS ORDERED: TORADOL PO (09:58)
[2018-07-31] MEDS ORDERED: PERCOCET 5/325M1 TAB PO (09:58)
[2018-07-31 10:31] VITALS: BP 119/56
== END 2018-07-31 10:50 | disposition home or self-care (01) ==
LOC: ORM 07:24
PROVIDERS: ATTEND Surgery
PROC: 06BY3ZC Excision of Hemorrhoidal Plexus, Percutaneous Approach (ICD-10-PCS; principal; 2018-07-31)
PROC: 0H89XZZ Division of Perineum Skin, External Approach (ICD-10-PCS; 2018-07-31)
DX: K64.8 Other hemorrhoids (principal); K60.3 Anal fistula; I10 Essential (primary) hypertension; J44.9 Chronic obstructive pulmonary disease, unspecified
CPT/HCPCS: C9290

== ENCOUNTER 2019-02-16 10:03 | Emergency (ER) | payer MEDICARE, MEDICAID ==
[~2019-02-16] VITALS: Ht 172.7 cm; Wt 90.9 kg
[~2019-02-16 10:03] MED LIST changes: +TORADOL PO
[2019-02-16] MEDS ORDERED: MOTRIN400 MG PO ×2 (11:15→12:05)
[2019-02-16] MEDS ORDERED: VOLTAREN1%GEL TOP ×2 (11:15→12:05)
[2019-02-16 12:00] VITALS: BP 134/74
== END 2019-02-16 12:00 | disposition home or self-care (01) ==
LOC: ED 10:03
DX: M25.562 Pain in left knee (principal); M25.561 Pain in right knee; I10 Essential (primary) hypertension

== ENCOUNTER 2019-06-25 | Emergency (ER) | payer MEDICARE, MEDICAID ==
[~2019-06-25] MED LIST changes: +MOTRIN400 MG PO; +VOLTAREN1%GEL TOP
[2019-06-26 01:10] LABS: HEMATOCRIT 35.3 % (39.0-50.0); HEMOGLOBIN 11.6 g/dl (14.0-18.0); IMMATURE GRANULOCYTES 0.2 % (0.0-5.0); MEAN CELL VOLUME 80.8 fL CALC (80.0-100.0); MEAN CORPUSCULAR HGB 26.5 pG CALC (26.0-32.0); MEAN CORPUSCULAR HGB CONC 32.9 g/L CALC (32.0-36.0); NEUT# 3.09 thou/uL (1.82-7.42); RED BLOOD COUNT 4.37 mill/uL (4.70-6.10); RED CELL DISTRI WIDTH 14.1 % (11.5-15.5)
[2019-06-26 01:20] LABS: ALBUMIN 3.9 g/dL (3.2-5.0); ALKALINE PHOSPHATASE 103 u/l (38-126); ANION GAP 14 (6-22 (CALC)); BILIRUBIN, TOTAL 0.3 mg/dL (0.0-1.4); BUN 14 mg/dL (8-23); BUN/CREATININE RATIO 19 (12-20 (CALC)); CARBON DIOXIDE 26 mmol/l (22-30); CHLORIDE 103 mmol/l (95-108); CREATININE 0.7 mg/dL (0.7-1.3); GFR > 60 ML/MIN (>=60 (CALC)); GFR FOR AFR.AMER. > 60 ML/MIN (>=60 (CALC)); POTASSIUM 4.1 mmol/l (3.5-5.1); SGOT/AST 20 u/l (19-48); SODIUM 138 mmol/l (137-146); TOTAL PROTEIN 8.2 g/dL (6.3-8.2)
[2019-06-26 01:30] LABS: URINE BILIRUBIN - DIPSTICK NEGATIVE (NEGATIVE); URINE BLOOD DIPSTICK TRACE-INTACT (NEGATIVE); URINE COLOR YELLOW; URINE GLUCOSE - DIPSTICK NEGATIVE (NEGATIVE); URINE KETONE NEGATIVE (NEGATIVE); URINE LEUK ESTERASE NEGATIVE (NEGATIVE); URINE NITRITE - DIPSTICK NEGATIVE (Negative); URINE PH 6.5 (4.5-8.0); URINE PROTEIN - DIPSTICK NEGATIVE (NEG-TRACE); URINE UROBILINOGEN - DIPSTICK 0.2 E.U./dL (0.2)
[2019-06-26] MEDS ORDERED: IBUPROFEN600 MG PO (02:14)
== END 2019-06-26 03:20 | disposition home or self-care (01) ==
PROVIDERS: Emergency Medicine
DX: M17.11 Unilateral primary osteoarthritis, right knee (principal); I10 Essential (primary) hypertension; F17.220 Nicotine dependence, chewing tobacco, uncomplicated

== ENCOUNTER 2019-10-24 13:28 | Emergency (ER) | payer MEDICARE, MEDICAID ==
[~2019-10-24] VITALS: Ht 172.7 cm; Wt 104.0 kg
[~2019-10-24 13:28] MED LIST changes: +IBUPROFEN600 MG PO
[2019-10-24 14:36] LABS: HEMATOCRIT 35.5 % (39.0-50.0); HEMOGLOBIN 11.6 g/dl (14.0-18.0); IMMATURE GRANULOCYTES 0.2 % (0.0-5.0); MEAN CELL VOLUME 80.9 fL CALC (80.0-100.0); MEAN CORPUSCULAR HGB 26.4 pG CALC (26.0-32.0); MEAN CORPUSCULAR HGB CONC 32.7 g/dL CAL (32.0-36.0); NEUT# 3.14 thou/uL (1.82-7.42); RED BLOOD COUNT 4.39 mill/uL (4.70-6.10); RED CELL DISTRI WIDTH 13.5 % (11.5-15.5)
[2019-10-24] MEDS ORDERED: ATENOLOL50 MG PO (14:53)
[2019-10-24] MEDS ORDERED: ACID CONTROLLER20 MG PO (14:53)
[2019-10-24] MEDS ORDERED: BENZTROPINE1 MG PO (14:54)
[2019-10-24] MEDS ORDERED: HYDROCHLOROT12.5 MG PO (14:55)
[2019-10-24] MEDS ORDERED: SERTRALINE100 MG PO (14:55)
[2019-10-24] MEDS ORDERED: HALOPERIDOL5 MG PO (14:56)
[2019-10-24] MEDS ORDERED: RISPERDAL2 MG PO (14:56)
[2019-10-24] MEDS ORDERED: RISPERDAL1 M1 PO (14:57)
[2019-10-24] MEDS ORDERED: QUINAPRIL20 MG PO (14:57)
[2019-10-24 14:59] LABS: ACT PARTIAL THROMBO TIME 28.3 SECONDS (20.0-32.5); INTERNATIONAL NORMALIZED RATIO 1.1 RATIO (0.7-1.3)
[2019-10-24 15:08] LABS: URINE BILIRUBIN - DIPSTICK NEGATIVE (NEGATIVE); URINE BLOOD DIPSTICK SMALL (NEGATIVE); URINE COLOR YELLOW; URINE GLUCOSE - DIPSTICK NEGATIVE (NEGATIVE); URINE KETONE NEGATIVE (NEGATIVE); URINE LEUK ESTERASE NEGATIVE (NEGATIVE); URINE NITRITE - DIPSTICK NEGATIVE (Negative); URINE PH 6.5 (4.5-8.0); URINE PROTEIN - DIPSTICK NEGATIVE (NEG-TRACE); URINE UROBILINOGEN - DIPSTICK 0.2 E.U./dL (0.2)
[2019-10-24 15:10] LABS: URINE SQUAMOUS EPITHELIAL CELL FEW EPI/hpf (0-FEW)
[2019-10-24 15:12] LABS: ALBUMIN 4.3 g/dL (3.2-5.0); ALKALINE PHOSPHATASE 113 u/l (38-126); AMYLASE 88 u/l (30-110); ANION GAP 12 (6-22 (CALC)); BILIRUBIN, TOTAL 0.4 mg/dL (0.0-1.4); BUN 10 mg/dL (8-23); BUN/CREATININE RATIO 13 (12-20 (CALC)); CARBON DIOXIDE 26 mmol/l (22-30); CHLORIDE 101 mmol/l (95-108); CREATININE 0.7 mg/dL (0.7-1.3); GFR > 60 ML/MIN (>=60 (CALC)); GFR FOR AFR.AMER. > 60 ML/MIN (>=60 (CALC)); LIPASE 87 u/l (23-300); POTASSIUM 3.8 mmol/l (3.5-5.1); SGOT/AST 28 u/l (19-48); SODIUM 135 mmol/l (137-146); TOTAL PROTEIN 8.7 g/dL (6.3-8.2)
[2019-10-24] MEDS ORDERED: ZITHROMAX250 MG PO (16:21)
[2019-10-24] MEDS ORDERED: TESSALON PER100 MG PO (16:21)
[2019-10-24 17:10] VITALS: BP 118/71
== END 2019-10-24 17:10 | disposition home or self-care (01) ==
LOC: ED 13:28
DX: J40 Bronchitis, not specified as acute or chronic (principal); R31.29 Other microscopic hematuria; I10 Essential (primary) hypertension; F17.200 Nicotine dependence, unspecified, uncomplicated; Z20.828 Contact with and (suspected) exposure to other viral communicable diseases

== ENCOUNTER 2019-12-26 17:18 | Emergency (ER) | payer MEDICARE, MEDICAID ==
[~2019-12-26] VITALS: Ht 172.7 cm; Wt 1023.0 kg
[~2019-12-26 17:18] MED LIST changes: +ACID CONTROLLER20 MG PO; +SERTRALINE100 MG PO; +TESSALON PER100 MG PO
[2019-12-26 17:41] LABS: HEMATOCRIT 34.7 % (39.0-50.0); HEMOGLOBIN 11.2 g/dl (14.0-18.0); IMMATURE GRANULOCYTES 0.3 % (0.0-5.0); MEAN CELL VOLUME 81.5 fL CALC (80.0-100.0); MEAN CORPUSCULAR HGB 26.3 pG CALC (26.0-32.0); MEAN CORPUSCULAR HGB CONC 32.3 g/dL CAL (32.0-36.0); NEUT# 3.55 thou/uL (1.82-7.42); RED BLOOD COUNT 4.26 mill/uL (4.70-6.10); RED CELL DISTRI WIDTH 13.8 % (11.5-15.5)
[2019-12-26 17:54] LABS: ALKALINE PHOSPHATASE 130 u/l (38-126); ANION GAP 14 (6-22 (CALC)); BUN 8 mg/dL (8-23); BUN/CREATININE RATIO 11 (12-20 (CALC)); CARBON DIOXIDE 24 mmol/l (22-30); CHLORIDE 100 mmol/l (95-108); CREATININE 0.7 mg/dL (0.7-1.3); ETHYL ALCOHOL 0 mg/dl (0-30); GFR > 60 ML/MIN (>=60 (CALC)); GFR FOR AFR.AMER. > 60 ML/MIN (>=60 (CALC)); LIPASE 117 u/l (23-300); POTASSIUM 4.1 mmol/l (3.5-5.1); SGOT/AST 20 u/l (19-48); SODIUM 134 mmol/l (137-146); TOTAL PROTEIN 8.2 g/dL (6.3-8.2)
[2019-12-26 17:55] LABS: BILIRUBIN, TOTAL 0.2 mg/dL (0.0-1.4)
[2019-12-26 17:58] LABS: URINE BILIRUBIN - DIPSTICK NEGATIVE (NEGATIVE); URINE BLOOD DIPSTICK TRACE-INTACT (NEGATIVE); URINE COLOR YELLOW; URINE GLUCOSE - DIPSTICK NEGATIVE (NEGATIVE); URINE KETONE NEGATIVE (NEGATIVE); URINE LEUK ESTERASE NEGATIVE (NEGATIVE); URINE NITRITE - DIPSTICK NEGATIVE (Negative); URINE PROTEIN - DIPSTICK NEGATIVE (NEG-TRACE); URINE SPECIFIC GRAVITY 1.015; URINE UROBILINOGEN - DIPSTICK 0.2 E.U./dL (0.2)
[2019-12-26 18:03] LABS: ACT PARTIAL THROMBO TIME 29.2 SECONDS (20.0-32.5); INTERNATIONAL NORMALIZED RATIO 1.2 RATIO (0.7-1.3); PROTHROMBIN TIME 12.1 SECONDS (9.0-12.5)
[2019-12-26 19:35] VITALS: BP 121/71
== END 2019-12-26 19:35 | disposition home or self-care (01) ==
LOC: ED 17:18
DX: S00.03XA Contusion of scalp, initial encounter (principal); I10 Essential (primary) hypertension; M79.606 Pain in leg, unspecified; G89.29 Other chronic pain; F17.200 Nicotine dependence, unspecified, uncomplicated; I25.2 Old myocardial infarction; W18.39XA Other fall on same level, initial encounter; Y92.002 Bathroom of unspecified non-institutional (private) residence as the place of occurrence of the external cause
CPT/HCPCS: Q9967

== ENCOUNTER 2020-06-06 23:30 | Observation (INO) | payer MEDICARE, MEDICAID ==
[~2020-06-06] VITALS: Ht 172.7 cm; Wt 106.8 kg
[2020-06-07 00:44] LABS: HEMATOCRIT 34.2 % (39.0-50.0); HEMOGLOBIN 11.3 g/dl (14.0-18.0); IMMATURE GRANULOCYTES 0.3 % (0.0-5.0); MEAN CELL VOLUME 81.6 fL CALC (80.0-100.0); NEUT# 3.25 thou/uL (1.82-7.42); RED BLOOD COUNT 4.19 mill/uL (4.70-6.10)
[2020-06-07 00:46] LABS: URINE BILIRUBIN - DIPSTICK NEGATIVE (NEGATIVE); URINE BLOOD DIPSTICK TRACE-LYSED (NEGATIVE); URINE COLOR YELLOW; URINE GLUCOSE - DIPSTICK NEGATIVE (NEGATIVE); URINE KETONE NEGATIVE (NEGATIVE); URINE LEUK ESTERASE NEGATIVE (NEGATIVE); URINE NITRITE - DIPSTICK NEGATIVE (Negative); URINE PROTEIN - DIPSTICK NEGATIVE (NEG-TRACE); URINE SPECIFIC GRAVITY <=1.005; URINE UROBILINOGEN - DIPSTICK 0.2 E.U./dL (0.2)
[2020-06-07 01:04] LABS: ALBUMIN 4.2 g/dL (3.2-5.0); ALKALINE PHOSPHATASE 109 u/l (38-126); AMYLASE 86 u/l (30-110); ANION GAP 13 (6-22 (CALC)); BUN 11 mg/dL (8-23); BUN/CREATININE RATIO 13 (12-20 (CALC)); CARBON DIOXIDE 26 mmol/l (22-30); CHLORIDE 99 mmol/l (95-108); CREATININE 0.8 mg/dL (0.7-1.3); GFR > 60 ML/MIN (>=60 (CALC)); GFR FOR AFR.AMER. > 60 ML/MIN (>=60 (CALC)); LIPASE 166 u/l (23-300); POTASSIUM 4.2 mmol/l (3.5-5.1); SGOT/AST 23 u/l (19-48); SODIUM 135 mmol/l (137-146); TOTAL PROTEIN 8.8 g/dL (6.3-8.2)
[2020-06-07 01:06] LABS: BILIRUBIN, TOTAL 0.5 mg/dL (0.0-1.4)
[2020-06-07 02:02] VITALS: BP 139/80
[2020-06-07 04:07] VITALS: BP 128/81
[2020-06-07 09:48] VITALS: BP 127/79
[2020-06-07 11:15] VITALS: BP 127/76
[2020-06-07] MEDS ORDERED: MEDDOSEPAK PO (11:15)
[2020-06-07] MEDS ORDERED: ASPIRIN LOW DOS81 M1 PO (11:15)
== END 2020-06-07 16:32 | disposition home or self-care (01) ==
LOC: ED 23:30 → ED-I 06-07 01:09 → ED 06-07 01:27 → MS2 06-07 01:28
PROVIDERS: ADMIT Internal Medicine; ATTEND Internal Medicine
DX: R07.9 Chest pain, unspecified (principal); I10 Essential (primary) hypertension; I25.10 Atherosclerotic heart disease of native coronary artery without angina pectoris; M16.0 Bilateral primary osteoarthritis of hip; E78.5 Hyperlipidemia, unspecified; K21.9 Gastro-esophageal reflux disease without esophagitis; F20.5 Residual schizophrenia; F17.210 Nicotine dependence, cigarettes, uncomplicated; Z20.822 Contact with and (suspected) exposure to COVID-19

== ENCOUNTER 2021-02-19 11:03 | Emergency (ER) | payer MEDICARE, MEDICAID ==
[~2021-02-19] VITALS: Ht 172.7 cm; Wt 104.5 kg
[~2021-02-19 11:03] MED LIST changes: +ASPIRIN LOW DOS81 M1 PO; +MEDDOSEPAK PO
[2021-02-19 12:12] LABS: URINE BILIRUBIN - DIPSTICK NEGATIVE (NEGATIVE); URINE BLOOD DIPSTICK NEGATIVE (NEGATIVE); URINE COLOR YELLOW; URINE GLUCOSE - DIPSTICK NEGATIVE (NEGATIVE); URINE KETONE NEGATIVE (NEGATIVE); URINE LEUK ESTERASE NEGATIVE (NEGATIVE); URINE PROTEIN - DIPSTICK NEGATIVE (NEG-TRACE); URINE SPECIFIC GRAVITY <=1.005; URINE UROBILINOGEN - DIPSTICK 0.2 E.U./dL (0.2)
[2021-02-19 12:13] LABS: URINE NITRITE - DIPSTICK NEGATIVE (Negative)
[2021-02-19 12:16] LABS: HEMATOCRIT 33.2 % (39.0-50.0); IMMATURE GRANULOCYTES 0.4 % (0.0-5.0); MEAN CELL VOLUME 81.8 fL CALC (80.0-100.0); MEAN CORPUSCULAR HGB 27.1 pG CALC (26.0-32.0); MEAN CORPUSCULAR HGB CONC 33.1 g/dL CAL (32.0-36.0); NEUT# 2.75 thou/uL (1.82-7.42); RED BLOOD COUNT 4.06 mill/uL (4.70-6.10); RED CELL DISTRI WIDTH 15.2 % (11.5-15.5)
[2021-02-19 12:29] LABS: ALKALINE PHOSPHATASE 123 u/l (38-126); ANION GAP 14 (6-22 (CALC)); BILIRUBIN, TOTAL 0.5 mg/dL (0.0-1.4); BUN 8 mg/dL (8-23); BUN/CREATININE RATIO 10 (12-20 (CALC)); CARBON DIOXIDE 29 mmol/l (22-30); CHLORIDE 100 mmol/l (95-108); CREATININE 0.8 mg/dL (0.7-1.3); GFR > 60 ML/MIN (>=60 (CALC)); GFR FOR AFR.AMER. > 60 ML/MIN (>=60 (CALC)); LIPASE 76 u/l (23-300); MAGNESIUM 1.8 mg/dL (1.6-2.3); POTASSIUM 4.5 mmol/l (3.5-5.1); SGOT/AST 27 u/l (19-48); SODIUM 138 mmol/l (137-146); TOTAL PROTEIN 8.5 g/dL (6.3-8.2)
[2021-02-19 12:30] LABS: ACT PARTIAL THROMBO TIME 26.5 SECONDS (20.0-32.5); INTERNATIONAL NORMALIZED RATIO 1.1 RATIO (0.7-1.3); PROTHROMBIN TIME 11.1 SECONDS (9.0-12.5)
[2021-02-19] MEDS ORDERED: FLEXERIL5 M1 PO (13:02)
[2021-02-19] MEDS ORDERED: ULTRAM50 MG PO (13:02)
[2021-02-19 13:17] VITALS: BP 112/69
== END 2021-02-19 13:05 | disposition home or self-care (01) ==
LOC: ED 11:03
DX: S39.012A Strain of muscle, fascia and tendon of lower back, initial encounter (principal); S16.1XXA Strain of muscle, fascia and tendon at neck level, initial encounter; I11.0 Hypertensive heart disease with heart failure; I50.32 Chronic diastolic (congestive) heart failure; I25.10 Atherosclerotic heart disease of native coronary artery without angina pectoris; E11.9 Type 2 diabetes mellitus without complications; E78.5 Hyperlipidemia, unspecified; K21.9 Gastro-esophageal reflux disease without esophagitis; G89.29 Other chronic pain; M79.605 Pain in left leg; M79.604 Pain in right leg; M54.50 Low back pain, unspecified; W06.XXXA Fall from bed, initial encounter; Y92.003 Bedroom of unspecified non-institutional (private) residence as the place of occurrence of the external cause; Z20.822 Contact with and (suspected) exposure to COVID-19

== ENCOUNTER 2021-05-10 02:31 | Emergency (ER) | payer MEDICARE, MEDICAID ==
[~2021-05-10] VITALS: Ht 172.7 cm; Wt 102.0 kg
[~2021-05-10 02:31] MED LIST changes: +DOXEPIN HCL10 MG PO; +FLEXERIL5 M1 PO; +STOOL SOFTE1 PO
[2021-05-10 03:16] LABS: HEMATOCRIT 35.2 % (39.0-50.0); HEMOGLOBIN 11.5 g/dl (14.0-18.0); IMMATURE GRANULOCYTES 0.3 % (0.0-5.0); MEAN CELL VOLUME 82.8 fL CALC (80.0-100.0); MEAN CORPUSCULAR HGB 27.1 pG CALC (26.0-32.0); MEAN CORPUSCULAR HGB CONC 32.7 g/dL CAL (32.0-36.0); NEUT# 2.59 thou/uL (1.82-7.42); RED BLOOD COUNT 4.25 mill/uL (4.70-6.10); RED CELL DISTRI WIDTH 13.9 % (11.5-15.5)
[2021-05-10 03:32] LABS: ALBUMIN 3.9 g/dL (3.2-5.0); ALKALINE PHOSPHATASE 109 u/l (38-126); ANION GAP 12 (6-22 (CALC)); BILIRUBIN, TOTAL 0.4 mg/dL (0.0-1.4); BUN 12 mg/dL (8-23); BUN/CREATININE RATIO 15 (12-20 (CALC)); CARBON DIOXIDE 27 mmol/l (22-30); CHLORIDE 100 mmol/l (95-108); CREATININE 0.8 mg/dL (0.7-1.3); GFR > 60 ML/MIN (>=60 (CALC)); GFR FOR AFR.AMER. > 60 ML/MIN (>=60 (CALC)); LIPASE 125 u/l (23-300); POTASSIUM 3.9 mmol/l (3.5-5.1); SGOT/AST 22 u/l (19-48); SODIUM 135 mmol/l (137-146); TOTAL PROTEIN 8.5 g/dL (6.3-8.2)
[2021-05-10] MEDS ORDERED: TESSALON PERLE100 MG PO (03:49)
[2021-05-10] MEDS ORDERED: ZPAK PO (03:49)
[2021-05-10 07:14] VITALS: BP 131/61
--- NOTE | 2021-05-12 08:40 | NUR ---
PRELIMINARY BC SHOWS GRAM(+) COCCI IN 1/4 VIALS. LIKELY CONTAMINATION. RESULTS REPORTED TO DR GAYTAN. NO NEW ORDERS. WILL FOLLOW UP WHEN FINAL RESULTS AVAILABILE.
[2021-05-12] MEDS ORDERED: SERTRALINE100 MG PO (11:52)
== END 2021-05-10 08:31 | disposition home or self-care (01) ==
LOC: ED 02:31
DX: J40 Bronchitis, not specified as acute or chronic (principal); I10 Essential (primary) hypertension; Z20.822 Contact with and (suspected) exposure to COVID-19

== ENCOUNTER 2021-07-19 20:37 | Emergency (ER) | payer MEDICARE, MEDICAID ==
[~2021-07-19] VITALS: Ht 172.7 cm; Wt 114.0 kg
[~2021-07-19 20:37] MED LIST changes: +TESSALON PERLE100 MG PO; +ZPAK PO
[2021-07-19 20:49] VITALS: BP 152/92
[2021-07-19 21:00] VITALS: BP 158/98
[2021-07-19 21:30] LABS: HEMATOCRIT 39.5 % (39.0-50.0); IMMATURE GRANULOCYTES 0.2 % (0.0-5.0); MEAN CELL VOLUME 82.3 fL CALC (80.0-100.0); MEAN CORPUSCULAR HGB 27.1 pG CALC (26.0-32.0); MEAN CORPUSCULAR HGB CONC 32.9 g/dL CAL (32.0-36.0); NEUT# 4.51 thou/uL (1.82-7.42); RED BLOOD COUNT 4.8 mill/uL (4.70-6.10); RED CELL DISTRI WIDTH 13.9 % (11.5-15.5)
[2021-07-19 21:39] LABS: ALBUMIN 4.3 g/dL (3.2-5.0); ALKALINE PHOSPHATASE 153 u/l (38-126); ANION GAP 15 (6-22 (CALC)); BILIRUBIN, TOTAL 0.3 mg/dL (0.0-1.4); BUN 10 mg/dL (8-23); BUN/CREATININE RATIO 14 (12-20 (CALC)); CARBON DIOXIDE 24 mmol/l (22-30); CHLORIDE 102 mmol/l (95-108); CREATININE 0.8 mg/dL (0.7-1.3); GFR > 60 ML/MIN (>=60 (CALC)); GFR FOR AFR.AMER. > 60 ML/MIN (>=60 (CALC)); POTASSIUM 3.7 mmol/l (3.5-5.1); SGOT/AST 27 u/l (19-48); SODIUM 137 mmol/l (137-146); TOTAL PROTEIN 9.3 g/dL (6.3-8.2)
[2021-07-19 23:15] VITALS: BP 158/98
== END 2021-07-19 23:10 | disposition home or self-care (01) ==
LOC: ED 20:37
PROVIDERS: Emergency Medicine
DX: F32.A Depression, unspecified (principal); I10 Essential (primary) hypertension

== ENCOUNTER 2021-07-20 14:39 | Emergency (ER) | payer MEDICARE, MEDICAID ==
[~2021-07-20] VITALS: Ht 172.7 cm; Wt 114.0 kg
[2021-07-20] VITALS (21 sets, daily range): BP systolic 117–205; BP diastolic 75–124
[2021-07-20 15:59] LABS: HEMATOCRIT 37.9 % (39.0-50.0); HEMOGLOBIN 12.4 g/dl (14.0-18.0); IMMATURE GRANULOCYTES 0.2 % (0.0-5.0); MEAN CELL VOLUME 81.9 fL CALC (80.0-100.0); MEAN CORPUSCULAR HGB 26.8 pG CALC (26.0-32.0); MEAN CORPUSCULAR HGB CONC 32.7 g/dL CAL (32.0-36.0); NEUT# 5.44 thou/uL (1.82-7.42); RED BLOOD COUNT 4.63 mill/uL (4.70-6.10); RED CELL DISTRI WIDTH 14.3 % (11.5-15.5)
[2021-07-20 16:05] LABS: URINE BILIRUBIN - DIPSTICK NEGATIVE (NEGATIVE); URINE BLOOD DIPSTICK MODERATE (NEGATIVE); URINE COLOR YELLOW; URINE GLUCOSE - DIPSTICK NEGATIVE (NEGATIVE); URINE KETONE NEGATIVE (NEGATIVE); URINE LEUK ESTERASE NEGATIVE (NEGATIVE); URINE PH 7.5 (4.5-8.0); URINE PROTEIN - DIPSTICK NEGATIVE (NEG-TRACE); URINE SPECIFIC GRAVITY 1.015; URINE UROBILINOGEN - DIPSTICK 0.2 E.U./dL (0.2)
[2021-07-20 16:09] LABS: URINE NITRITE - DIPSTICK NEGATIVE (Negative)
[2021-07-20 16:14] LABS: ALBUMIN 4.4 g/dL (3.2-5.0); ALKALINE PHOSPHATASE 146 u/l (38-126); ANION GAP 15 (6-22 (CALC)); BILIRUBIN, TOTAL 0.5 mg/dL (0.0-1.4); BUN 10 mg/dL (8-23); BUN/CREATININE RATIO 14 (12-20 (CALC)); CARBON DIOXIDE 26 mmol/l (22-30); CHLORIDE 101 mmol/l (95-108); CREATININE 0.7 mg/dL (0.7-1.3); ETHYL ALCOHOL 0 mg/dl (0-30); GFR > 60 ML/MIN (>=60 (CALC)); GFR FOR AFR.AMER. > 60 ML/MIN (>=60 (CALC)); LIPASE 85 u/l (23-300); SGOT/AST 29 u/l (19-48); SODIUM 138 mmol/l (137-146)
[2021-07-20 16:17] LABS: URINE WBC 0-2 WBC/hpf (0-5)
[2021-07-20 16:25] LABS: INTERNATIONAL NORMALIZED RATIO 1.3 RATIO (0.7-1.3); MYOGLOBIN 44 ng/mL (0 - 121); PROTHROMBIN TIME 13.2 SECONDS (9.0-12.5)
[2021-07-21] VITALS (10 sets, daily range): BP systolic 120–159; BP diastolic 75–103
== END 2021-07-21 08:04 | disposition home or self-care (01) ==
LOC: ED 14:39
PROVIDERS: Nurse Practitioner
DX: F32.A Depression, unspecified (principal); I10 Essential (primary) hypertension

== ENCOUNTER 2022-02-04 05:42 | Inpatient (IN) | payer MEDICARE, MEDICAID ==
[~2022-02-04] VITALS: Ht 172.7 cm; Wt 99.0 kg
[2022-02-04 06:31] LABS: HEMATOCRIT 35.8 % (39.0-50.0); HEMOGLOBIN 11.9 g/dl (14.0-18.0); IMMATURE GRANULOCYTES 0.1 % (0.0-5.0); MEAN CELL VOLUME 82.1 fL CALC (80.0-100.0); MEAN CORPUSCULAR HGB 27.3 pG CALC (26.0-32.0); MEAN CORPUSCULAR HGB CONC 33.2 g/dL CAL (32.0-36.0); NEUT# 4.14 thou/uL (1.82-7.42); RED BLOOD COUNT 4.36 mill/uL (4.70-6.10); RED CELL DISTRI WIDTH 14.3 % (11.5-15.5)
[2022-02-04 06:52] LABS: ALBUMIN 4.2 g/dL (3.2-5.0); ALKALINE PHOSPHATASE 111 u/l (38-126); AMYLASE 95 u/l (30-110); ANION GAP 19 (6-22 (CALC)); BILIRUBIN, TOTAL 0.2 mg/dL (0.0-1.4); BUN 8 mg/dL (8-23); BUN/CREATININE RATIO 12 (12-20 (CALC)); CARBON DIOXIDE 21 mmol/l (22-30); CHLORIDE 100 mmol/l (95-108); CREATININE 0.7 mg/dL (0.7-1.3); GFR FOR AFR.AMER. > 60 ML/MIN (>=60 (CALC)); GFR OTHER RACES > 60 ML/MIN (>=60 (CALC)); LIPASE 73 u/l (23-300); POTASSIUM 3.6 mmol/l (3.5-5.1); SGOT/AST 35 u/l (19-48); SODIUM 136 mmol/l (137-146); TOTAL PROTEIN 8.3 g/dL (6.3-8.2)
[2022-02-04 07:04] LABS: MYOGLOBIN 37 ng/mL (0 - 121)
[2022-02-04 15:47] VITALS: BP 161/89
[2022-02-04 16:29] LABS: URINE BILIRUBIN - DIPSTICK NEGATIVE (NEGATIVE); URINE BLOOD DIPSTICK SMALL (NEGATIVE); URINE COLOR YELLOW; URINE GLUCOSE - DIPSTICK NEGATIVE (NEGATIVE); URINE KETONE NEGATIVE (NEGATIVE); URINE PH 7.5 (4.5-8.0); URINE PROTEIN - DIPSTICK NEGATIVE (NEG-TRACE); URINE SPECIFIC GRAVITY 1.015; URINE UROBILINOGEN - DIPSTICK 0.2 E.U./dL (0.2)
[2022-02-04 16:30] LABS: URINE LEUK ESTERASE SMALL (NEGATIVE); URINE NITRITE - DIPSTICK POSITIVE (Negative)
[2022-02-04 16:33] LABS: URINE BACTERIA MANY hpf; URINE RBC 0-2 RBC/hpf (0-5)
[2022-02-04] MEDS ORDERED: TRAMADOL HYDROC50 M1 PO (16:52)
[2022-02-04] MEDS ORDERED: TAMSULOSIN HCL0.4 MG PO (16:53)
[2022-02-04] MEDS ORDERED: FERROUS SULFAT325 MG PO (16:54)
[2022-02-04 19:40] VITALS: BP 143/82
[2022-02-05 00:55] VITALS: BP 132/91
[2022-02-05 04:13] VITALS: BP 132/80
[2022-02-05 05:14] LABS: HEMATOCRIT 33.7 % (39.0-50.0); HEMOGLOBIN 11.6 g/dl (14.0-18.0); MEAN CELL VOLUME 80.4 fL CALC (80.0-100.0); MEAN CORPUSCULAR HGB 27.7 pG CALC (26.0-32.0); MEAN CORPUSCULAR HGB CONC 34.4 g/dL CAL (32.0-36.0); NEUT# 5.84 thou/uL (1.82-7.42); RED BLOOD COUNT 4.19 mill/uL (4.70-6.10); RED CELL DISTRI WIDTH 14.4 % (11.5-15.5)
[2022-02-05 05:35] LABS: ANION GAP 15 (6-22 (CALC)); BUN 8 mg/dL (8-23); BUN/CREATININE RATIO 13 (12-20 (CALC)); CARBON DIOXIDE 23 mmol/l (22-30); CHLORIDE 102 mmol/l (95-108); CREATININE 0.6 mg/dL (0.7-1.3); GFR FOR AFR.AMER. > 60 ML/MIN (>=60 (CALC)); GFR OTHER RACES > 60 ML/MIN (>=60 (CALC)); POTASSIUM 3.7 mmol/l (3.5-5.1); SODIUM 137 mmol/l (137-146)
[2022-02-05 06:43] VITALS: BP 132/80
[2022-02-05 14:31] VITALS: BP 140/69
[2022-02-05 19:30] VITALS: BP 145/84
[2022-02-06 01:15] VITALS: BP 117/84
[2022-02-06 04:54] VITALS: BP 116/78
[2022-02-06 05:21] LABS: HEMATOCRIT 35.8 % (39.0-50.0); HEMOGLOBIN 12.2 g/dl (14.0-18.0); IMMATURE GRANULOCYTES 0.4 % (0.0-5.0); MEAN CELL VOLUME 80.4 fL CALC (80.0-100.0); MEAN CORPUSCULAR HGB 27.4 pG CALC (26.0-32.0); MEAN CORPUSCULAR HGB CONC 34.1 g/dL CAL (32.0-36.0); NEUT# 6.34 thou/uL (1.82-7.42); RED BLOOD COUNT 4.45 mill/uL (4.70-6.10); RED CELL DISTRI WIDTH 14.5 % (11.5-15.5)
[2022-02-06 05:51] LABS: ANION GAP 18 (6-22 (CALC)); BUN 9 mg/dL (8-23); BUN/CREATININE RATIO 12 (12-20 (CALC)); CARBON DIOXIDE 21 mmol/l (22-30); CHLORIDE 102 mmol/l (95-108); CREATININE 0.8 mg/dL (0.7-1.3); GFR FOR AFR.AMER. > 60 ML/MIN (>=60 (CALC)); GFR OTHER RACES > 60 ML/MIN (>=60 (CALC)); MAGNESIUM 1.8 mg/dL (1.6-2.3); POTASSIUM 3.6 mmol/l (3.5-5.1); SODIUM 137 mmol/l (137-146)
[2022-02-06 06:16] VITALS: BP 139/82
[2022-02-06 08:37] VITALS: BP 144/89
[2022-02-06 10:57] VITALS: BP 116/66
[2022-02-06] MEDS ORDERED: POLYETHYLENE GL17 GM PO (11:01)
[2022-02-06] MEDS ORDERED: SENNA-PLUS1 TAB PO (11:01)
[2022-02-06] MEDS ORDERED: OMNICEF300 MG PO (11:02)
== END 2022-02-06 12:14 | disposition home or self-care (01) | DRG 392 ==
LOC: ED 05:42 → ED-I 09:33 → ED 09:46 → MS2 09:47
PROVIDERS: Emergency Medicine; Family Medicine; Internal Medicine; Nurse Practitioner; ADMIT Internal Medicine; ATTEND Internal Medicine
DX: K59.00 Constipation, unspecified (principal); E87.20 Acidosis, unspecified; N39.0 Urinary tract infection, site not specified; F20.5 Residual schizophrenia; I10 Essential (primary) hypertension; I25.10 Atherosclerotic heart disease of native coronary artery without angina pectoris; E78.5 Hyperlipidemia, unspecified; K21.9 Gastro-esophageal reflux disease without esophagitis; K64.9 Unspecified hemorrhoids; F17.200 Nicotine dependence, unspecified, uncomplicated; B96.20 Unspecified Escherichia coli [E. coli] as the cause of diseases classified elsewhere; Z23 Encounter for immunization; Z20.822 Contact with and (suspected) exposure to COVID-19
CPT/HCPCS: J1650; Q9967; S0164

== ENCOUNTER 2022-09-03 23:33 | Emergency (ER) | payer MEDICARE, MEDICAID ==
[~2022-09-03] VITALS: Ht 172.7 cm; Wt 77.0 kg
[~2022-09-03 23:33] MED LIST changes: +FERROUS SULFAT325 MG PO; +OMNICEF300 MG PO; +POLYETHYLENE GL17 GM PO; +SENNA-PLUS1 TAB PO; +TAMSULOSIN HCL0.4 MG PO; +TRAMADOL HYDROC50 M1 PO
[2022-09-04 00:31] LABS: BASO% 0.2 % (0-3); EOS% 3.9 % (0-8); HEMATOCRIT 34.1 % (39.0-50.0); HEMOGLOBIN 11.3 g/dl (14.0-18.0); IMMATURE GRANULOCYTES 0.3 % (0.0-5.0); LYMPH% 47.2 % (15-41); MEAN CELL VOLUME 83.8 fL CALC (80.0-100.0); MEAN CORPUSCULAR HGB 27.8 pG CALC (26.0-32.0); MEAN CORPUSCULAR HGB CONC 33.1 g/dL CAL (32.0-36.0); MONO% 12.8 % (2-13); NEUT# 2.11 thou/uL (1.82-7.42); NEUT% 35.6 % (42-76); RED BLOOD COUNT 4.07 mill/uL (4.70-6.10); RED CELL DISTRI WIDTH 13.9 % (11.5-15.5)
[2022-09-04 00:41] LABS: URINE BILIRUBIN - DIPSTICK NEGATIVE (NEGATIVE); URINE BLOOD DIPSTICK NEGATIVE (NEGATIVE); URINE COLOR YELLOW; URINE GLUCOSE - DIPSTICK NEGATIVE (NEGATIVE); URINE KETONE NEGATIVE (NEGATIVE); URINE LEUK ESTERASE NEGATIVE (NEGATIVE); URINE NITRITE - DIPSTICK NEGATIVE (Negative); URINE PH 7.5 (4.5-8.0); URINE PROTEIN - DIPSTICK NEGATIVE (NEG-TRACE); URINE UROBILINOGEN - DIPSTICK 0.2 E.U./dL (0.2)
[2022-09-04 00:43] LABS: ALBUMIN 3.8 g/dL (3.2-5.0); ALKALINE PHOSPHATASE 121 u/l (38-126); ANION GAP 11 (6-22 (CALC)); BILIRUBIN, TOTAL 0.2 mg/dL (0.2-1.3); BUN 11 mg/dL (8-23); BUN/CREATININE RATIO 14 (12-20 (CALC)); CARBON DIOXIDE 28 mmol/l (22-30); CHLORIDE 103 mmol/l (95-108); CREATININE 0.8 mg/dL (0.7-1.3); GFR FOR AFR.AMER. > 60 ML/MIN (>=60 (CALC)); GFR OTHER RACES > 60 ML/MIN (>=60 (CALC)); LIPASE 174 u/l (23-300); POTASSIUM 3.6 mmol/l (3.5-5.1); SGOT/AST 35 u/l (19-48); SODIUM 138 mmol/l (137-146); TOTAL PROTEIN 8.1 g/dL (6.3-8.2)
[2022-09-04] MEDS ORDERED: MIRALAX17 GM PO (00:59)
[2022-09-04] MEDS ORDERED: PEPCID20 MG PO (00:59)
[2022-09-04 02:05] VITALS: BP 126/65
== END 2022-09-04 02:20 | disposition home or self-care (01) ==
LOC: ED 23:33
PROVIDERS: Family Medicine
DX: K59.00 Constipation, unspecified (principal); I10 Essential (primary) hypertension; F17.200 Nicotine dependence, unspecified, uncomplicated; Z86.73 Personal history of transient ischemic attack (TIA), and cerebral infarction without residual deficits
CPT/HCPCS: S0164

== ENCOUNTER 2022-09-20 01:06 | Emergency (ER) | payer MEDICARE, MEDICAID ==
[~2022-09-20] VITALS: Ht 172.7 cm; Wt 77.0 kg
[~2022-09-20 01:06] MED LIST changes: +MIRALAX17 GM PO
[2022-09-20 01:27] VITALS: BP 123/75
[2022-09-20 01:31] VITALS: BP 153/88
[2022-09-20 01:59] LABS: BASO% 0.3 % (0-3); EOS% 2.4 % (0-8); HEMATOCRIT 33.4 % (39.0-50.0); HEMOGLOBIN 11.1 g/dl (14.0-18.0); IMMATURE GRANULOCYTES 0.6 % (0.0-5.0); LYMPH% 44.7 % (15-41); MEAN CELL VOLUME 83.7 fL CALC (80.0-100.0); MEAN CORPUSCULAR HGB 27.8 pG CALC (26.0-32.0); MEAN CORPUSCULAR HGB CONC 33.2 g/dL CAL (32.0-36.0); MONO% 13.2 % (2-13); NEUT# 2.56 thou/uL (1.82-7.42); NEUT% 38.8 % (42-76); RED BLOOD COUNT 3.99 mill/uL (4.70-6.10); RED CELL DISTRI WIDTH 14.5 % (11.5-15.5)
[2022-09-20 02:06] LABS: ALBUMIN 3.9 g/dL (3.2-5.0); ALKALINE PHOSPHATASE 91 u/l (38-126); ANION GAP 13 (6-22 (CALC)); BILIRUBIN, TOTAL 0.3 mg/dL (0.2-1.3); BUN 12 mg/dL (8-23); BUN/CREATININE RATIO 15 (12-20 (CALC)); CARBON DIOXIDE 24 mmol/l (22-30); CHLORIDE 105 mmol/l (95-108); CREATININE 0.8 mg/dL (0.7-1.3); GFR FOR AFR.AMER. > 60 ML/MIN (>=60 (CALC)); GFR OTHER RACES > 60 ML/MIN (>=60 (CALC)); POTASSIUM 4.2 mmol/l (3.5-5.1); SGOT/AST 33 u/l (19-48); SODIUM 137 mmol/l (137-146); TOTAL PROTEIN 8.2 g/dL (6.3-8.2)
[2022-09-20 02:09] LABS: ACT PARTIAL THROMBO TIME 26.7 SECONDS (20.0-32.5); INTERNATIONAL NORMALIZED RATIO 1.2 RATIO (0.7-1.3); PROTHROMBIN TIME 11.4 SECONDS (9.0-12.5)
[2022-09-20] MEDS ORDERED: CITRATE OF MEGNESIA PO (04:17)
[2022-09-20] MEDS ORDERED: PROCTOFOAM HC10 GM RE (04:17)
[2022-09-20] MEDS ORDERED: MIRALAX17 GM PO (04:17)
[2022-09-20 05:02] VITALS: BP 153/88
== END 2022-09-20 05:30 | disposition home or self-care (01) ==
LOC: ED 01:06
PROVIDERS: Family Medicine
DX: K64.9 Unspecified hemorrhoids (principal); K59.00 Constipation, unspecified; I10 Essential (primary) hypertension; Z86.73 Personal history of transient ischemic attack (TIA), and cerebral infarction without residual deficits

== ENCOUNTER 2022-10-25 07:41 | Day surgery (SDC) | payer MEDICARE, MEDICAID ==
[~2022-10-25 07:41] MED LIST changes: +CITRATE OF MEGNESIA PO; +INVEGA SUST IM; +PROCTOFOAM HC10 GM RE; +SEROQUEL200 MG PO; +STOOL SOFTENER100 M1 PO; +VESICARE10 MG PO
[2022-10-25 10:04] VITALS: BP 139/90
== END 2022-10-25 11:20 | disposition home or self-care (01) ==
LOC: ENDO 07:41 → ORM 09:40 → ENDO 11:15 → ORM 11:15 → ENDO 11:20
PROVIDERS: ATTEND Surgery
PROC: 0DBH8ZX Excision of Cecum, Via Natural or Artificial Opening Endoscopic, Diagnostic (ICD-10-PCS; principal; 2022-10-25)
PROC: 0DBL8ZX Excision of Transverse Colon, Via Natural or Artificial Opening Endoscopic, Diagnostic (ICD-10-PCS; 2022-10-25)
DX: K57.31 Diverticulosis of large intestine without perforation or abscess with bleeding (principal); D12.3 Benign neoplasm of transverse colon; K63.5 Polyp of colon; K64.8 Other hemorrhoids; I10 Essential (primary) hypertension; F17.220 Nicotine dependence, chewing tobacco, uncomplicated

== ENCOUNTER 2022-10-30 12:03 | Emergency (ER) | payer MEDICARE, MEDICAID ==
[~2022-10-30] VITALS: Ht 165.1 cm; Wt 97.6 kg
[2022-10-30 12:12] VITALS: BP 148/86
[2022-10-30 12:21] VITALS: BP 191/100
[2022-10-30 12:32] LABS: BASO% 0.6 % (0-3); EOS% 1.7 % (0-8); HEMATOCRIT 35.9 % (39.0-50.0); HEMOGLOBIN 11.8 g/dl (14.0-18.0); IMMATURE GRANULOCYTES 0.2 % (0.0-5.0); LYMPH% 28.5 % (15-41); MEAN CELL VOLUME 83.7 fL CALC (80.0-100.0); MEAN CORPUSCULAR HGB 27.5 pG CALC (26.0-32.0); MEAN CORPUSCULAR HGB CONC 32.9 g/dL CAL (32.0-36.0); MONO% 14.6 % (2-13); NEUT# 2.92 thou/uL (1.82-7.42); NEUT% 54.4 % (42-76); RED BLOOD COUNT 4.29 mill/uL (4.70-6.10); RED CELL DISTRI WIDTH 13.4 % (11.5-15.5)
[2022-10-30 12:41] LABS: ALKALINE PHOSPHATASE 86 u/l (38-126); ANION GAP 13 (6-22 (CALC)); BUN 11 mg/dL (8-23); BUN/CREATININE RATIO 13 (12-20 (CALC)); CARBON DIOXIDE 27 mmol/l (22-30); CHLORIDE 104 mmol/l (95-108); CREATININE 0.8 mg/dL (0.7-1.3); ETHYL ALCOHOL 0 mg/dl (0-30); GFR FOR AFR.AMER. > 60 ML/MIN (>=60 (CALC)); GFR OTHER RACES > 60 ML/MIN (>=60 (CALC)); SGOT/AST 53 u/l (19-48); SODIUM 140 mmol/l (137-146); TOTAL PROTEIN 8.9 g/dL (6.3-8.2)
[2022-10-30 12:50] LABS: BILIRUBIN, TOTAL 0.5 mg/dL (0.2-1.3)
[2022-10-30 14:28] LABS: URINE BILIRUBIN - DIPSTICK NEGATIVE (NEGATIVE); URINE BLOOD DIPSTICK TRACE-INTACT (NEGATIVE); URINE COLOR YELLOW; URINE GLUCOSE - DIPSTICK NEGATIVE (NEGATIVE); URINE KETONE NEGATIVE (NEGATIVE); URINE LEUK ESTERASE NEGATIVE (NEGATIVE); URINE PH 7.5 (4.5-8.0); URINE PROTEIN - DIPSTICK NEGATIVE (NEG-TRACE); URINE UROBILINOGEN - DIPSTICK 0.2 E.U./dL (0.2)
[2022-10-30 14:36] LABS: URINE NITRITE - DIPSTICK NEGATIVE (Negative)
[2022-10-30 15:02] VITALS: BP 191/100
== END 2022-10-30 16:00 | disposition home or self-care (01) ==
LOC: ED 12:03
PROVIDERS: Family Medicine
DX: R53.83 Other fatigue (principal); I10 Essential (primary) hypertension; F17.200 Nicotine dependence, unspecified, uncomplicated; Z86.73 Personal history of transient ischemic attack (TIA), and cerebral infarction without residual deficits

== ENCOUNTER 2023-04-08 09:49 | Emergency (ER) | payer MEDICARE, MEDICAID ==
[~2023-04-08] VITALS: Ht 165.1 cm; Wt 102.7 kg
[2023-04-08] VITALS (8 sets, daily range): BP systolic 141–163; BP diastolic 86–102
[~2023-04-08 09:49] MED LIST changes: +DICLOFENAC SODIUM2 % TD; +LEVSIN0.125 M1 PO
[2023-04-08 11:28] LABS: BASO% 0.3 % (0-3); EOS% 4.5 % (0-8); HEMATOCRIT 37.2 % (39.0-50.0); HEMOGLOBIN 12.2 g/dl (14.0-18.0); IMMATURE GRANULOCYTES 0.3 % (0.0-5.0); LYMPH% 35.4 % (15-41); MEAN CELL VOLUME 85.7 fL CALC (80.0-100.0); MEAN CORPUSCULAR HGB 28.1 pG CALC (26.0-32.0); MEAN CORPUSCULAR HGB CONC 32.8 g/dL CAL (32.0-36.0); MONO% 14.4 % (2-13); NEUT# 2.83 thou/uL (1.82-7.42); NEUT% 45.1 % (42-76); RED BLOOD COUNT 4.34 mill/uL (4.70-6.10); RED CELL DISTRI WIDTH 13.2 % (11.5-15.5)
[2023-04-08 12:11] LABS: ALBUMIN 4.3 g/dL (3.2-5.0); ALKALINE PHOSPHATASE 128 u/l (38-126); ANION GAP 15 (6-22 (CALC)); BILIRUBIN, TOTAL 0.4 mg/dL (0.2-1.3); BUN 8 mg/dL (8-23); BUN/CREATININE RATIO 8 (12-20 (CALC)); CARBON DIOXIDE 30 mmol/l (22-30); CHLORIDE 98 mmol/l (95-108); CREATININE 0.9 mg/dL (0.7-1.3); GFR FOR AFR.AMER. > 60 ML/MIN (>=60 (CALC)); GFR OTHER RACES > 60 ML/MIN (>=60 (CALC)); POTASSIUM 4.6 mmol/l (3.5-5.1); SGOT/AST 60 u/l (19-48); SODIUM 139 mmol/l (137-146); TOTAL PROTEIN 9.1 g/dL (6.3-8.2)
[2023-04-08 12:25] LABS: URINE BILIRUBIN - DIPSTICK Negative (NEGATIVE); URINE BLOOD DIPSTICK Trace-intact (NEGATIVE); URINE GLUCOSE - DIPSTICK Negative (NEGATIVE); URINE KETONE Negative (NEGATIVE); URINE LEUK ESTERASE Negative (NEGATIVE); URINE NITRITE - DIPSTICK Negative (Negative); URINE PH 7.5 (4.5-8.0); URINE PROTEIN - DIPSTICK Negative (NEG-TRACE); URINE SPECIFIC GRAVITY 1.015; URINE UROBILINOGEN - DIPSTICK 0.2 E.U./dL (0.2)
[2023-04-08 12:26] LABS: URINE COLOR Straw
== END 2023-04-08 14:24 | disposition home or self-care (01) ==
LOC: ED 09:49
PROVIDERS: Family Medicine
DX: S00.83XA Contusion of other part of head, initial encounter (principal); S16.1XXA Strain of muscle, fascia and tendon at neck level, initial encounter; M25.512 Pain in left shoulder; M25.561 Pain in right knee; M25.572 Pain in left ankle and joints of left foot; M54.9 Dorsalgia, unspecified; I10 Essential (primary) hypertension; F17.220 Nicotine dependence, chewing tobacco, uncomplicated; W18.30XA Fall on same level, unspecified, initial encounter; Y92.000 Kitchen of unspecified non-institutional (private) residence as the place of occurrence of the external cause; Z86.73 Personal history of transient ischemic attack (TIA), and cerebral infarction without residual deficits

== ENCOUNTER 2023-04-27 11:31 | Observation (INO) | payer MEDICARE, MEDICAID ==
[2023-04-27] VITALS (8 sets, daily range): BP systolic 124–170; BP diastolic 67–109
[~2023-04-27] VITALS: Ht 165.1 cm; Wt 94.7 kg
[2023-04-27 12:12] LABS: GFR FOR AFR.AMER. > 60 ML/MIN (>=60 (CALC)); GFR OTHER RACES > 60 ML/MIN (>=60 (CALC))
[2023-04-27 12:30] LABS: INTERNATIONAL NORMALIZED RATIO 1.2 RATIO (0.7-1.3); PROTHROMBIN TIME 10.9 SECONDS (9.0-12.5)
[2023-04-27 12:31] LABS: BASO% 0.2 % (0-3); EOS% 3.4 % (0-8); HEMATOCRIT 37.7 % (39.0-50.0); HEMOGLOBIN 12.6 g/dl (14.0-18.0); IMMATURE GRANULOCYTES 0.4 % (0.0-5.0); LYMPH% 37.9 % (15-41); MEAN CELL VOLUME 84.5 fL CALC (80.0-100.0); MEAN CORPUSCULAR HGB 28.3 pG CALC (26.0-32.0); MEAN CORPUSCULAR HGB CONC 33.4 g/dL CAL (32.0-36.0); NEUT# 2.54 thou/uL (1.82-7.42); NEUT% 45.1 % (42-76); RED BLOOD COUNT 4.46 mill/uL (4.70-6.10); RED CELL DISTRI WIDTH 13.4 % (11.5-15.5)
[2023-04-27 12:33] LABS: ALBUMIN 4.1 g/dL (3.2-5.0); ALKALINE PHOSPHATASE 121 u/l (38-126); ANION GAP 12 (6-22 (CALC)); BILIRUBIN, TOTAL 0.4 mg/dL (0.2-1.3); BUN 14 mg/dL (8-23); BUN/CREATININE RATIO 16 (12-20 (CALC)); CARBON DIOXIDE 29 mmol/l (22-30); CHLORIDE 104 mmol/l (95-108); CPK 330 u/l (55-170); CREATININE 0.9 mg/dL (0.7-1.3); ETHYL ALCOHOL 0 mg/dl (0-30); GFR FOR AFR.AMER. > 60 ML/MIN (>=60 (CALC)); GFR OTHER RACES > 60 ML/MIN (>=60 (CALC)); LIPASE 105 u/l (23-300); MAGNESIUM 1.9 mg/dL (1.6-2.3); POTASSIUM 4.4 mmol/l (3.5-5.1); SGOT/AST 35 u/l (19-48); SODIUM 140 mmol/l (137-146); TOTAL PROTEIN 8.8 g/dL (6.3-8.2)
[2023-04-27 12:53] LABS: URINE BILIRUBIN - DIPSTICK Negative (NEGATIVE); URINE BLOOD DIPSTICK Trace-intact (NEGATIVE); URINE GLUCOSE - DIPSTICK Negative (NEGATIVE); URINE KETONE Negative (NEGATIVE); URINE LEUK ESTERASE Negative (NEGATIVE); URINE NITRITE - DIPSTICK Negative (Negative); URINE PH 8.5 (4.5-8.0); URINE PROTEIN - DIPSTICK Negative (NEG-TRACE); URINE SPECIFIC GRAVITY 1.015; URINE UROBILINOGEN - DIPSTICK 0.2 E.U./dL (0.2)
[2023-04-27 12:55] LABS: URINE COLOR Yellow
[2023-04-27 13:04] LABS: TSH, 3RD GENERATION 1.47 uIU/mL (0.47 - 4.68)
[2023-04-27] MEDS ORDERED: FUROSEMIDE20 MG PO (15:13)
[2023-04-27] MEDS ORDERED: INVEGA SUS78 MG/0.5 IM (15:25)
[2023-04-27 18:16] LABS: CALCULATED LDLCHOLESTEROL 100 mg/dL (62-129 (CALC)); CHOLESTEROL HDL RATIO 3.1 (<4.4 (CALC)); HDL CHOLESTEROL 54 mg/dL (39.0-59.0); TOTAL CHOLESTEROL 171 mg/dl (0-199); TOTAL TRIGLYCERIDES 83 mg/dl (0-149); VLDL CHOLESTROL 17 mg/dl (4-45 (CALC))
[2023-04-28] VITALS (15 sets, daily range): BP systolic 114–165; BP diastolic 42–92
[2023-04-28 10:16] LABS: BASO% 0.3 % (0-3); EOS% 1.2 % (0-8); HEMOGLOBIN 12.4 g/dl (14.0-18.0); IMMATURE GRANULOCYTES 0.2 % (0.0-5.0); MEAN CORPUSCULAR HGB 27.8 pG CALC (26.0-32.0); MEAN CORPUSCULAR HGB CONC 33.5 g/dL CAL (32.0-36.0); MONO% 14.7 % (2-13); NEUT# 3.4 thou/uL (1.82-7.42); NEUT% 58.6 % (42-76); RED BLOOD COUNT 4.46 mill/uL (4.70-6.10); RED CELL DISTRI WIDTH 13.6 % (11.5-15.5)
[2023-04-28 10:21] LABS: ALBUMIN 3.8 g/dL (3.2-5.0); ALKALINE PHOSPHATASE 109 u/l (38-126); ANION GAP 13 (6-22 (CALC)); BILIRUBIN, TOTAL 0.4 mg/dL (0.2-1.3); BUN 13 mg/dL (8-23); BUN/CREATININE RATIO 17 (12-20 (CALC)); CARBON DIOXIDE 24 mmol/l (22-30); CHLORIDE 105 mmol/l (95-108); CREATININE 0.7 mg/dL (0.7-1.3); GFR FOR AFR.AMER. > 60 ML/MIN (>=60 (CALC)); GFR OTHER RACES > 60 ML/MIN (>=60 (CALC)); POTASSIUM 3.7 mmol/l (3.5-5.1); SGOT/AST 39 u/l (19-48); SODIUM 138 mmol/l (137-146); TOTAL PROTEIN 8.5 g/dL (6.3-8.2)
== END 2023-04-28 15:11 | disposition home or self-care (01) ==
LOC: ED 11:31 → ED-I 12:13 → ED 16:06 → ICU 16:07
PROVIDERS: Family Medicine; ADMIT Student in an Organized Health Care Education/Training Program; ATTEND Student in an Organized Health Care Education/Training Program
DX: T50.901A Poisoning by unspecified drugs, medicaments and biological substances, accidental (unintentional), initial encounter (principal); R40.4 Transient alteration of awareness; I10 Essential (primary) hypertension; I25.10 Atherosclerotic heart disease of native coronary artery without angina pectoris; E78.5 Hyperlipidemia, unspecified; F20.9 Schizophrenia, unspecified; K21.9 Gastro-esophageal reflux disease without esophagitis; F17.200 Nicotine dependence, unspecified, uncomplicated; Y92.009 Unspecified place in unspecified non-institutional (private) residence as the place of occurrence of the external cause; Z86.73 Personal history of transient ischemic attack (TIA), and cerebral infarction without residual deficits; Z20.822 Contact with and (suspected) exposure to COVID-19
CPT/HCPCS: Q9967

== ENCOUNTER 2023-05-10 17:04 | Emergency (ER) | payer MEDICARE, MEDICAID ==
[~2023-05-10] VITALS: Ht 165.1 cm; Wt 104.0 kg
[~2023-05-10 17:04] MED LIST changes: +FUROSEMIDE20 MG PO; +INVEGA SUS78 MG/0.5 IM
[2023-05-10 17:44] LABS: BASO% 0.6 % (0-3); EOS% 1.6 % (0-8); HEMATOCRIT 32.4 % (39.0-50.0); IMMATURE GRANULOCYTES 0.2 % (0.0-5.0); MEAN CELL VOLUME 83.9 fL CALC (80.0-100.0); MEAN CORPUSCULAR HGB 28.5 pG CALC (26.0-32.0); MONO% 13.5 % (2-13); NEUT# 3.29 thou/uL (1.82-7.42); NEUT% 53.1 % (42-76); RED BLOOD COUNT 3.86 mill/uL (4.70-6.10); RED CELL DISTRI WIDTH 13.5 % (11.5-15.5)
[2023-05-10 17:49] LABS: ALBUMIN 3.8 g/dL (3.2-5.0); ALKALINE PHOSPHATASE 109 u/l (38-126); ANION GAP 11 (6-22 (CALC)); BILIRUBIN, TOTAL 0.5 mg/dL (0.2-1.3); BUN 12 mg/dL (8-23); BUN/CREATININE RATIO 14 (12-20 (CALC)); CARBON DIOXIDE 27 mmol/l (22-30); CHLORIDE 102 mmol/l (95-108); CREATININE 0.8 mg/dL (0.7-1.3); ETHYL ALCOHOL 0 mg/dl (0-30); GFR FOR AFR.AMER. > 60 ML/MIN (>=60 (CALC)); GFR OTHER RACES > 60 ML/MIN (>=60 (CALC)); POTASSIUM 3.6 mmol/l (3.5-5.1); SGOT/AST 36 u/l (19-48); SODIUM 136 mmol/l (137-146)
[2023-05-10 18:00] VITALS: BP 181/106
[2023-05-10 18:27] LABS: URINE BILIRUBIN - DIPSTICK Negative (NEGATIVE); URINE BLOOD DIPSTICK Trace-intact (NEGATIVE); URINE GLUCOSE - DIPSTICK Negative (NEGATIVE); URINE KETONE Negative (NEGATIVE); URINE LEUK ESTERASE Negative (NEGATIVE); URINE NITRITE - DIPSTICK Negative (Negative); URINE PROTEIN - DIPSTICK Negative (NEG-TRACE); URINE SPECIFIC GRAVITY 1.015; URINE UROBILINOGEN - DIPSTICK 0.2 E.U./dL (0.2)
[2023-05-10 18:28] LABS: URINE COLOR Yellow
[2023-05-10 23:13] VITALS: BP 168/93
== END 2023-05-10 23:13 ==
LOC: ED 17:04
PROVIDERS: Family Medicine
DX: R44.1 Visual hallucinations (principal); I10 Essential (primary) hypertension; Z86.73 Personal history of transient ischemic attack (TIA), and cerebral infarction without residual deficits; Z20.822 Contact with and (suspected) exposure to COVID-19
CPT/HCPCS: S0166

== ENCOUNTER 2023-06-08 16:01 | Emergency (ER) | payer MEDICARE, MEDICAID ==
[~2023-06-08] VITALS: Ht 165.1 cm; Wt 104.0 kg
[2023-06-08 17:05] LABS: BASO% 0.5 % (0-3); EOS% 3.1 % (0-8); HEMATOCRIT 32.2 % (39.0-50.0); HEMOGLOBIN 10.6 g/dl (14.0-18.0); IMMATURE GRANULOCYTES 0.2 % (0.0-5.0); LYMPH% 37.3 % (15-41); MEAN CELL VOLUME 85.6 fL CALC (80.0-100.0); MEAN CORPUSCULAR HGB 28.2 pG CALC (26.0-32.0); MEAN CORPUSCULAR HGB CONC 32.9 g/dL CAL (32.0-36.0); MONO% 13.1 % (2-13); NEUT# 2.84 thou/uL (1.82-7.42); NEUT% 45.8 % (42-76); RED BLOOD COUNT 3.76 mill/uL (4.70-6.10); RED CELL DISTRI WIDTH 14.2 % (11.5-15.5)
[2023-06-08 17:23] LABS: ALBUMIN 3.6 g/dL (3.2-5.0); ALKALINE PHOSPHATASE 112 u/l (38-126); ANION GAP 11 (6-22 (CALC)); BILIRUBIN, TOTAL 0.3 mg/dL (0.2-1.3); BUN 11 mg/dL (8-23); BUN/CREATININE RATIO 12 (12-20 (CALC)); CARBON DIOXIDE 25 mmol/l (22-30); CHLORIDE 107 mmol/l (95-108); CREATININE 0.9 mg/dL (0.7-1.3); GFR FOR AFR.AMER. > 60 ML/MIN (>=60 (CALC)); GFR OTHER RACES > 60 ML/MIN (>=60 (CALC)); SGOT/AST 25 u/l (19-48); SODIUM 138 mmol/l (137-146); TOTAL PROTEIN 7.5 g/dL (6.3-8.2)
[2023-06-08 18:19] LABS: URINE BILIRUBIN - DIPSTICK Negative (NEGATIVE); URINE BLOOD DIPSTICK Trace-intact (NEGATIVE); URINE GLUCOSE - DIPSTICK Negative (NEGATIVE); URINE KETONE Negative (NEGATIVE); URINE LEUK ESTERASE Negative (NEGATIVE); URINE NITRITE - DIPSTICK Negative (Negative); URINE PH 6.5 (4.5-8.0); URINE PROTEIN - DIPSTICK Negative (NEG-TRACE); URINE SPECIFIC GRAVITY 1.015; URINE UROBILINOGEN - DIPSTICK 0.2 E.U./dL (0.2)
[2023-06-08 18:21] LABS: URINE COLOR Yellow
[2023-06-09 04:45] VITALS: BP 138/80
== END 2023-06-09 04:30 ==
LOC: ED 16:01
PROVIDERS: Family Medicine
DX: R44.1 Visual hallucinations (principal); I10 Essential (primary) hypertension; Z86.73 Personal history of transient ischemic attack (TIA), and cerebral infarction without residual deficits; Z20.822 Contact with and (suspected) exposure to COVID-19

== ENCOUNTER 2023-12-01 20:16 | Observation (INO) | payer MEDICARE, MEDICAID ==
[~2023-12-01] VITALS: Ht 170.2 cm; Wt 102.7 kg
[2023-12-01] VITALS (12 sets, daily range): BP systolic 89–126; BP diastolic 57–74
[2023-12-01 20:47] LABS: BASO% 0.5 % (0-3); HEMATOCRIT 35.8 % (39.0-50.0); HEMOGLOBIN 12.1 g/dl (14.0-18.0); IMMATURE GRANULOCYTES 0.2 % (0.0-5.0); LYMPH% 39.1 % (15-41); MEAN CORPUSCULAR HGB 28.4 pG CALC (26.0-32.0); MEAN CORPUSCULAR HGB CONC 33.8 g/dL CAL (32.0-36.0); MONO% 13.5 % (2-13); NEUT# 2.52 thou/uL (1.82-7.42); NEUT% 44.7 % (42-76); RED BLOOD COUNT 4.26 mill/uL (4.70-6.10)
[2023-12-01 21:06] LABS: ALBUMIN 4.1 g/dL (3.2-5.0); ALKALINE PHOSPHATASE 107 u/l (38-126); ANION GAP 11 (6-22 (CALC)); BILIRUBIN, TOTAL 0.4 mg/dL (0.2-1.3); BUN 14 mg/dL (8-23); BUN/CREATININE RATIO 10 (12-20 (CALC)); CARBON DIOXIDE 25 mmol/l (22-30); CHLORIDE 105 mmol/l (95-108); CREATININE 1.5 mg/dL (0.7-1.3); ESTIMATED GFR 50 ML/MIN (>=90 (CALC)); POTASSIUM 3.5 mmol/l (3.5-5.1); SGOT/AST 31 u/l (19-48); SODIUM 138 mmol/l (137-146); TOTAL PROTEIN 8.4 g/dL (6.3-8.2)
[2023-12-01 21:08] LABS: D-DIMER 0.54 mg/L (0.19-0.60)
[2023-12-01 21:17] LABS: ACT PARTIAL THROMBO TIME 27.7 SECONDS (20.0-32.5); INTERNATIONAL NORMALIZED RATIO 1.2 RATIO (0.7-1.3)
[2023-12-01] MEDS ORDERED: SODIUM CHLORIDE 0.9% 1,000 ML IV PRN ×2 (22:15→22:30)
[2023-12-01] MEDS ORDERED: ACETAMINOPHEN 325 MG/TAB PO PRN (22:15)
[2023-12-01] MEDS ORDERED: MAGNESIUM HYDROXIDE 30 ML UDC PO PRN (22:30)
[2023-12-01] MEDS ORDERED: MORPHINE SULFATE 4 MG/ML VIAL IV PRN (22:30)
[2023-12-01] MEDS ORDERED: NITROGLYCERIN 0.4 MG/TAB SL PRN (22:30)
[2023-12-02] VITALS: BP 126/65
[2023-12-02 04:00] VITALS: BP 133/83
[2023-12-02 04:15] VITALS: BP 133/83
[2023-12-02 04:57] LABS: BASO% 0.2 % (0-3); EOS% 2.5 % (0-8); HEMATOCRIT 35.7 % (39.0-50.0); IMMATURE GRANULOCYTES 0.2 % (0.0-5.0); LYMPH% 33.3 % (15-41); MEAN CELL VOLUME 85.2 fL CALC (80.0-100.0); MEAN CORPUSCULAR HGB 28.6 pG CALC (26.0-32.0); MEAN CORPUSCULAR HGB CONC 33.6 g/dL CAL (32.0-36.0); MONO% 13.4 % (2-13); NEUT# 2.83 thou/uL (1.82-7.42); NEUT% 50.4 % (42-76); RED BLOOD COUNT 4.19 mill/uL (4.70-6.10); RED CELL DISTRI WIDTH 13.2 % (11.5-15.5)
[2023-12-02 05:20] LABS: ALBUMIN 3.7 g/dL (3.2-5.0); BILIRUBIN, TOTAL 0.3 mg/dL (0.2-1.3); CHOLESTEROL HDL RATIO 3.3 (<4.4 (CALC)); CREATININE 1.1 mg/dL (0.7-1.3); MAGNESIUM 1.7 mg/dL (1.6-2.3); POTASSIUM 3.6 mmol/l (3.5-5.1); TOTAL PROTEIN 7.7 g/dL (6.3-8.2)
[2023-12-02 07:05] VITALS: BP 147/81
[2023-12-02] MEDS ORDERED: TAMSULOSIN HCL 0.4 MG CAP PO SCH (08:00)
[2023-12-02] MEDS ORDERED: VALPROIC ACID 250 MG/CAP PO SCH ×2 (09:00→21:00)
[2023-12-02] MEDS ORDERED: FERROUS SULFATE 325 MG/TAB PO SCH (09:00)
[2023-12-02] MEDS ORDERED: FAMOTIDINE 20 MG/TAB PO SCH (09:00)
[2023-12-02] MEDS ORDERED: ASPIRIN 81 MG/TAB PO SCH ×2 (09:00)
[2023-12-02] MEDS ORDERED: CLOPIDOGREL BISULFATE 75 MG/TAB TAB PO SCH (09:00)
[2023-12-02 10:44] VITALS: BP 120/69
[2023-12-02] MEDS ORDERED: QUEtiapine FUMERATE 100 MG/TAB PO SCH (21:00)
[2023-12-02] MEDS ORDERED: ENOXAPARIN SODIUM 40 MG/0.4 ML SYR SC SCH (21:00)
[2023-12-02] MEDS ORDERED: ATORVASTATIN CALCIUM 40 MG/TAB PO SCH (21:00)
[2023-12-04] MEDS ORDERED: INVEGA SUS234 MG/1.5 IJ (09:10)
[2023-12-04] MEDS ORDERED: DIVALPROEX PO (09:14)
[2023-12-04] MEDS ORDERED: CLOPIDOGREL75 MG PO (09:14)
[2023-12-04] MEDS ORDERED: POTASSIUM CHLO20 ME1 PO (09:15)
== END 2023-12-02 12:40 | disposition home or self-care (01) ==
LOC: ED 20:16 → ED-I 21:50 → ED 22:13 → MS2 22:14
PROVIDERS: Emergency Medicine; ADMIT Student in an Organized Health Care Education/Training Program; ATTEND Student in an Organized Health Care Education/Training Program
DX: R07.9 Chest pain, unspecified (principal); N17.9 Acute kidney failure, unspecified; I11.0 Hypertensive heart disease with heart failure; I50.9 Heart failure, unspecified; I25.10 Atherosclerotic heart disease of native coronary artery without angina pectoris; K21.9 Gastro-esophageal reflux disease without esophagitis; E78.5 Hyperlipidemia, unspecified; F20.5 Residual schizophrenia; F79 Unspecified intellectual disabilities; G25.81 Restless legs syndrome; Z86.73 Personal history of transient ischemic attack (TIA), and cerebral infarction without residual deficits; Z87.11 Personal history of peptic ulcer disease

== ENCOUNTER 2024-01-20 00:52 | Emergency (ER) | payer MEDICARE, MEDICAID ==
[2024-01-20] VITALS (23 sets, daily range): BP systolic 102–150; BP diastolic 61–103
[~2024-01-20] VITALS: Ht 170.2 cm; Wt 96.0 kg
[~2024-01-20 00:52] MED LIST changes: +CLOPIDOGREL75 MG PO; +DIVALPROEX PO; +INVEGA SUS234 MG/1.5 IJ; +POTASSIUM CHLO20 ME1 PO
[2024-01-20 01:28] LABS: BASO% 0.2 % (0-3); EOS% 2.6 % (0-8); HEMATOCRIT 33.7 % (39.0-50.0); HEMOGLOBIN 11.2 g/dl (14.0-18.0); IMMATURE GRANULOCYTES 0.4 % (0.0-5.0); LYMPH% 45.2 % (15-41); MEAN CORPUSCULAR HGB 28.6 pG CALC (26.0-32.0); MEAN CORPUSCULAR HGB CONC 33.2 g/dL CAL (32.0-36.0); NEUT# 1.95 thou/uL (1.82-7.42); NEUT% 39.6 % (42-76); RED BLOOD COUNT 3.92 mill/uL (4.70-6.10); RED CELL DISTRI WIDTH 13.1 % (11.5-15.5)
[2024-01-20 01:43] LABS: ALBUMIN 3.8 g/dL (3.2-5.0); ALKALINE PHOSPHATASE 79 u/l (38-126); ANION GAP 8 (6-22 (CALC)); BUN 12 mg/dL (8-23); BUN/CREATININE RATIO 15 (12-20 (CALC)); CARBON DIOXIDE 24 mmol/l (22-30); CHLORIDE 108 mmol/l (95-108); CREATININE 0.9 mg/dL (0.7-1.3); ESTIMATED GFR 92 ML/MIN (>=90 (CALC)); SGOT/AST 30 u/l (19-48); SODIUM 137 mmol/l (137-146); TOTAL PROTEIN 7.9 g/dL (6.3-8.2)
[2024-01-20 01:44] LABS: BILIRUBIN, TOTAL 0.6 mg/dL (0.2-1.3)
[2024-01-20] MEDS ORDERED: CIPROFLOXACN500 MG PO (02:04)
== END 2024-01-20 07:05 | disposition home or self-care (01) ==
LOC: ED 00:52
PROVIDERS: Family Medicine
DX: N45.1 Epididymitis (principal); R53.1 Weakness; D64.9 Anemia, unspecified; I11.0 Hypertensive heart disease with heart failure; I50.9 Heart failure, unspecified; F79 Unspecified intellectual disabilities; F17.200 Nicotine dependence, unspecified, uncomplicated; Z86.73 Personal history of transient ischemic attack (TIA), and cerebral infarction without residual deficits

== ENCOUNTER 2024-03-15 01:48 | Emergency (ER) | payer MEDICARE, MEDICAID ==
[~2024-03-15] VITALS: Ht 170.2 cm; Wt 102.0 kg
[2024-03-15] VITALS (10 sets, daily range): BP systolic 108–146; BP diastolic 70–96
[2024-03-15] MEDS ORDERED: ACETAMINOPHEN 500 MG TAB PO ONE (01:55)
[2024-03-15] MEDS ORDERED: ASPIRIN 81 MG/TAB PO ONE (01:55)
[2024-03-15 02:16] LABS: BASO% 0.2 % (0-3); EOS% 2.2 % (0-8); HEMATOCRIT 33.6 % (39.0-50.0); HEMOGLOBIN 11.2 g/dl (14.0-18.0); IMMATURE GRANULOCYTES 0.3 % (0.0-5.0); LYMPH% 36.3 % (15-41); MEAN CELL VOLUME 86.6 fL CALC (80.0-100.0); MEAN CORPUSCULAR HGB 28.9 pG CALC (26.0-32.0); MEAN CORPUSCULAR HGB CONC 33.3 g/dL CAL (32.0-36.0); MONO% 14.8 % (2-13); NEUT# 2.79 thou/uL (1.82-7.42); NEUT% 46.2 % (42-76); RED BLOOD COUNT 3.88 mill/uL (4.70-6.10); RED CELL DISTRI WIDTH 13.8 % (11.5-15.5)
[2024-03-15 02:32] LABS: ALKALINE PHOSPHATASE 95 u/l (38-126); ANION GAP 13 (6-22 (CALC)); BILIRUBIN, TOTAL 0.4 mg/dL (0.2-1.3); BUN 16 mg/dL (8-23); BUN/CREATININE RATIO 16 (12-20 (CALC)); CARBON DIOXIDE 28 mmol/l (22-30); CHLORIDE 102 mmol/l (95-108); ESTIMATED GFR 81 ML/MIN (>=90 (CALC)); LIPASE 117 u/l (23-300); POTASSIUM 3.8 mmol/l (3.5-5.1); SGOT/AST 38 u/l (19-48); SODIUM 139 mmol/l (137-146); TOTAL PROTEIN 8.2 g/dL (6.3-8.2)
[2024-03-15 03:13] LABS: URINE BILIRUBIN - DIPSTICK Negative (NEGATIVE); URINE BLOOD DIPSTICK Negative (NEGATIVE); URINE GLUCOSE - DIPSTICK Negative (NEGATIVE); URINE KETONE Negative (NEGATIVE); URINE LEUK ESTERASE Negative (NEGATIVE); URINE NITRITE - DIPSTICK Negative (Negative); URINE PROTEIN - DIPSTICK Negative (NEG-TRACE); URINE SPECIFIC GRAVITY 1.015; URINE UROBILINOGEN - DIPSTICK 0.2 E.U./dL (0.2)
[2024-03-15 03:14] LABS: URINE COLOR Yellow
== END 2024-03-15 03:52 | disposition home or self-care (01) ==
LOC: ED 01:48
PROVIDERS: Family Medicine
DX: R07.89 Other chest pain (principal); I11.0 Hypertensive heart disease with heart failure; I50.9 Heart failure, unspecified; Z86.73 Personal history of transient ischemic attack (TIA), and cerebral infarction without residual deficits; Z72.0 Tobacco use

== ENCOUNTER 2024-05-27 19:17 | Observation (INO) | payer MEDICARE, MEDICAID ==
[2024-05-27] VITALS (18 sets, daily range): BP systolic 103–152; BP diastolic 59–101
[~2024-05-27] VITALS: Ht 170.2 cm; Wt 102.0 kg
[~2024-05-27 19:17] MED LIST changes: -DIVALPROEX PO; -FUROSEMIDE20 MG PO; -INVEGA SUS234 MG/1.5 IJ; +INVEGA SUS234 MG/1.5 IM; +LASIX 40 MG TAB40 MG PO
--- NOTE | 2024-05-27 19:17 | NUR ---
PT TO ER ROOM 4 VIA EMS
[2024-05-27] MEDS ORDERED: ASPIRIN 81 MG/TAB PO ONE (19:25)
[2024-05-27 20:01] LABS: URINE BILIRUBIN - DIPSTICK Negative (NEGATIVE); URINE BLOOD DIPSTICK Negative (NEGATIVE); URINE COLOR Light yellow; URINE GLUCOSE - DIPSTICK Negative (NEGATIVE); URINE KETONE Negative (NEGATIVE); URINE LEUK ESTERASE Negative (NEGATIVE); URINE NITRITE - DIPSTICK Negative (Negative); URINE PROTEIN - DIPSTICK Negative (NEG-TRACE); URINE SPECIFIC GRAVITY 1.015; URINE UROBILINOGEN - DIPSTICK 0.2 E.U./dL (0.2)
[2024-05-27 20:02] LABS: BASO% 0.4 % (0-3); HEMATOCRIT 33.3 % (39.0-50.0); HEMOGLOBIN 11.2 g/dl (14.0-18.0); IMMATURE GRANULOCYTES 0.2 % (0.0-5.0); LYMPH% 38.1 % (15-41); MEAN CELL VOLUME 85.4 fL CALC (80.0-100.0); MEAN CORPUSCULAR HGB 28.7 pG CALC (26.0-32.0); MEAN CORPUSCULAR HGB CONC 33.6 g/dL CAL (32.0-36.0); MONO% 13.3 % (2-13); NEUT# 2.1 thou/uL (1.82-7.42); RED BLOOD COUNT 3.9 mill/uL (4.70-6.10); RED CELL DISTRI WIDTH 13.5 % (11.5-15.5)
[2024-05-27 20:14] LABS: ALBUMIN 3.8 g/dL (3.2-5.0); ALKALINE PHOSPHATASE 82 u/l (38-126); ANION GAP 13 (6-22 (CALC)); BILIRUBIN, TOTAL 0.5 mg/dL (0.2-1.3); BUN 18 mg/dL (8-23); BUN/CREATININE RATIO 16 (12-20 (CALC)); CARBON DIOXIDE 26 mmol/l (22-30); CHLORIDE 103 mmol/l (95-108); CREATININE 1.1 mg/dL (0.7-1.3); ESTIMATED GFR 73 ML/MIN (>=90 (CALC)); POTASSIUM 3.8 mmol/l (3.5-5.1); SGOT/AST 31 u/l (19-48); SODIUM 137 mmol/l (137-146); TOTAL PROTEIN 7.6 g/dL (6.3-8.2)
--- NOTE | 2024-05-27 20:20 | NUR ---
Reassessment of patient completed. No distress noted.
--- NOTE | 2024-05-27 21:25 | NUR ---
Reassessment of patient completed. No distress noted. call light within reach.
[2024-05-27] MEDS ORDERED: ONDANSETRON HCl 4 MG/2 ML SDV IV PRN (22:50)
[2024-05-27] MEDS ORDERED: ONDANSETRON 4 MG/TAB ODT PO PRN (22:50)
[2024-05-27] MEDS ORDERED: ALUM & MAG HYDROX-SIMETHICONE 30 ML PO PRN (22:50)
[2024-05-27] MEDS ORDERED: FAMOTIDINE 10MG/ML 2ML SDV IV PRN (22:50)
[2024-05-27] MEDS ORDERED: Polyethylene Glycol 3350 17 GM/PKT PO PRN (22:50)
[2024-05-27] MEDS ORDERED: IBUPROFEN 800 MG/TAB PO PRN (22:50)
--- NOTE | 2024-05-27 23:05 | NUR ---
ATTEMPTED TO PERFORM MED REC FOR ADMISSION, BUT PT DOES NOT KNOW WHAT MEDICATIONS HE TAKES AT HOME AND DOES NOT HAVE A MED LIST WITH HIM.
[2024-05-27] MEDS ORDERED: CLARIFY DOSE PO PRN (23:15)
--- NOTE | 2024-05-27 23:25 | NUR ---
PT REPORT GIVEN TO LASHAWN PANG IN ICU FLOOR
--- NOTE | 2024-05-27 23:35 | NUR ---
PT TRANSPORTED TO ICU ROOM 5 VIA STRETCHER
--- NOTE | 2024-05-27 23:50 | NUR ---
PT ARRIVED FROM ER VIA STRETCHER TO ICU BED 5 MS OBSERVATION PT WITH C/O CP, RESOLVED IN ER PER PT. PT ALERT X4, ABLE TO MAKE NEEDS KNOWN. PT TRANSFERED FROM STRETCHER TO BED WITH MINIMAL ASSIST. NEURO CHECK WNL, PT DENIES CP AT THIS TIME, HR 70 REG, RESP EVEN/UNLABORED, ABDOMEN SOFT, DISTENDED, NON-TENDER, CONTINENT OF B&B. BSX4 ACTIVE, PT STATED LBM 2-5-25. PPP, CAP REFILL <3SEC. B/P 123.74, SA02@100% RA, PT NPO, NO MED HX, PHARMACY CONSULTATION AND CM CONSULTATION PENDING. PT VOIDED 250 CLEAR YELLOW URINE TO URINAL WITHOUT DIFFICULTY. PT ORIENTED TO UNIT, ROOM AND CALL LIGHT SYSTEM, PT VERBALIZED UNDERSTANDING. CALL LIGHT IN REACH, WILL MONITOR.
[2024-05-28] VITALS (13 sets, daily range): BP systolic 89–158; BP diastolic 65–100
--- NOTE | 2024-05-28 04:00 | NUR ---
PT RESTING QUIETLY WITH EYES CLOSED. VSS, CALL LIGHT IM REACH. WILL MONITOR
[2024-05-28 04:12] LABS: BASO% 0.2 % (0-3); EOS% 3.7 % (0-8); HEMATOCRIT 34.1 % (39.0-50.0); HEMOGLOBIN 11.5 g/dl (14.0-18.0); IMMATURE GRANULOCYTES 0.2 % (0.0-5.0); LYMPH% 35.2 % (15-41); MEAN CELL VOLUME 85.7 fL CALC (80.0-100.0); MEAN CORPUSCULAR HGB 28.9 pG CALC (26.0-32.0); MEAN CORPUSCULAR HGB CONC 33.7 g/dL CAL (32.0-36.0); MONO% 15.6 % (2-13); NEUT# 2.05 thou/uL (1.82-7.42); NEUT% 45.1 % (42-76); RED BLOOD COUNT 3.98 mill/uL (4.70-6.10); RED CELL DISTRI WIDTH 13.4 % (11.5-15.5)
[2024-05-28 04:15] LABS: ALBUMIN 3.7 g/dL (3.2-5.0); BILIRUBIN, TOTAL 0.5 mg/dL (0.2-1.3); POTASSIUM 3.8 mmol/l (3.5-5.1); TOTAL PROTEIN 7.6 g/dL (6.3-8.2)
--- NOTE | 2024-05-28 06:08 | NUR ---
PT RESTING IN BED WITH EYES CLOSED, NO DISTRESS NOTED, CALL LIGHT IN REACH. WILL MONITOR
--- NOTE | 2024-05-28 07:56 | NUR ---
PT REPORT RECEIVED FROM TELEVISION [place] DIRECTOR. STILL COMPLAINT OF CHEST PAIN, BUT A 1 OR 2, NO SOB AT THIS TIME. PT IS ALERT/ORIENTED X3, VITAL SIGNS STABLE, WILL CONTINUE TO MONITER
[2024-05-28] MEDS ORDERED: DEPAKOTE250 MG PO (08:58)
[2024-05-28] MEDS ORDERED: CLOPIDOGREL BISULFATE 75 MG/TAB TAB PO SCH (09:00)
[2024-05-28] MEDS ORDERED: ATENOLOL 50 MG/TAB PO SCH (09:00)
[2024-05-28] MEDS ORDERED: FUROSEMIDE 20 MG/TAB PO SCH (09:00)
[2024-05-28] MEDS ORDERED: hydroCHLOROthiazide 12.5 MG/CAP PO SCH (09:00)
[2024-05-28] MEDS ORDERED: VALPROIC ACID 250 MG/CAP PO SCH ×2 (09:00→21:00)
[2024-05-28] MEDS ORDERED: TAMSULOSIN HCL 0.4 MG CAP PO SCH (09:00)
[2024-05-28] MEDS ORDERED: FLEXERIL5 M1 PO (09:06)
[2024-05-28] MEDS ORDERED: DRISDOL50000 UNIT PO (09:07)
[2024-05-28] MEDS ORDERED: COLACE100 MG PO (10:02)
[2024-05-28] MEDS ORDERED: FUROSEMIDE 40 MG/TAB PO SCH (13:00)
--- NOTE | 2024-05-28 14:33 | NUR ---
PT REMAINS CHEST PAIN FREE, ADVISED SISTER WILL BE HERE AROUND 530 TO PICK PT UP FOR DISCHARGE
--- NOTE | 2024-05-28 16:29 | NUR ---
IV D/C'D, AND DISCHARGE INST GIVEN, PT VOICES UNDERSTANDING. WAITING FOR SISTER TO COME TO PICK HIM UP
[2024-05-29] MEDS ORDERED: VALPROIC ACID 250 MG/CAP PO SCH (09:00)
== END 2024-05-28 17:30 ==
LOC: ED 19:17 → ED-I 20:18 → ED 20:18 → ED-I 22:37 → ED 22:50 → ICU 22:51
PROVIDERS: Nurse Practitioner; ADMIT Internal Medicine; ATTEND Internal Medicine
DX: R07.9 Chest pain, unspecified (principal); I11.0 Hypertensive heart disease with heart failure; I50.9 Heart failure, unspecified; I25.10 Atherosclerotic heart disease of native coronary artery without angina pectoris; E78.5 Hyperlipidemia, unspecified; K21.9 Gastro-esophageal reflux disease without esophagitis; R62.50 Unspecified lack of expected normal physiological development in childhood; F20.5 Residual schizophrenia; F17.200 Nicotine dependence, unspecified, uncomplicated; Z86.73 Personal history of transient ischemic attack (TIA), and cerebral infarction without residual deficits; Z87.11 Personal history of peptic ulcer disease; Z20.822 Contact with and (suspected) exposure to COVID-19